=== PATIENT | male | born 1950 | race Caucasian/White ===

== ENCOUNTER 2019-01-03 16:47 | Inpatient (IN) | payer BC, MEDICARE, OTHER ==
[~2019-01-03] VITALS: Ht 172.7 cm; Wt 79.4 kg
[~2019-01-03 16:47] MED LIST: OXYCODONE HCL5 MG ORAL
[2019-01-03] MEDS ORDERED: Morphine Sulfate 4mg/ml Inj (IV USE ONLY) IVP ONE (17:15)
[2019-01-03] MEDS ORDERED: DiphenhydrAMINE 50mg/ml Inj IVP ONE (17:15)
[2019-01-03] MEDS ORDERED: Metoclopramide 10mg/2ml Inj IVP ONE (17:15)
[2019-01-03] MEDS ORDERED: Isovue-300 100ml vial INJ PRN (17:15)
[2019-01-03 17:45] LABS: ANION GAP 11 mmol/L (5-15); BLOOD UREA NITROGEN 10 mg/dL (7-18); CALCIUM 9.3 MG/DL (8.5-10.1); CARBON DIOXIDE 27 MMOL/L (21-32); CHLORIDE 105 MMOL/L (98-107); CREATININE 1.1 MG/DL (0.55-1.30); POTASSIUM 4.2 MMOL/L (3.5-5.1); SODIUM 143 MMOL/L (136-145)
--- NOTE | 2019-01-03 17:45 | NUR ---
ED Nurse Note:pt. was BIBA from home with c/o abdminal pain nausea and vomiting, pt. is A/Ox4 abulatory , VSS, blood was sent to labs, given IV fluids and pain meds
[2019-01-03 17:53] LABS: HEMATOCRIT 46.1 % (42.0-52.0); HEMOGLOBIN 14.7 G/DL (14.2-18.0); MEAN CORPUSCULAR VOLUME 96 FL (80-99); PLATELET COUNT 65 K/UL (150-450); RED CELL DISTRIBUTION WIDTH 15.6 % (11.6-14.8); WHITE BLOOD COUNT 3.4 K/UL (4.8-10.8)
--- NOTE | 2019-01-03 17:53 | Emergency Room Report ---
History of Present Illness General Chief Complaint: Abdominal Pain Source: Patient, Family Member Present Illness HPI The patient presents with 8 hours of severe abdominal pain and vomiting. He is unable to keep down clear liquids. In the past he said bowel obstruction with this problem. He denies vomiting blood or coffee-ground. At this time is vomiting bile. He felt feverish during the user acceptance tester. He is not taking any medication. He feels somewhat constipated and has not moved his bowels for a couple of days. The pain is rated 10/10 at the time since, aching and pressure radiating somewhat to the right flank. The patient has a history of hepatitis C with stomach ulcer and banding of esophageal varices in the past. He had medical treatment and the hepatitis C is cured at this time. He denies chest pain, cough, sore throat, dysuria, hematuria or joint pain. There is no headache. He has no depression. Allergies: Coded Allergies: No Known Allergies (Unverified , 11/17/14) Patient History Past Medical History: see triage record Past Surgical History: other - Banding of varices, splenorenal shunt Social History: Denies: smoking Social History Narrative With significant other Reviewed Nursing Documentation: PMH: Agreed; PSxH: Agreed Nursing Documentation-PMH Past Medical History: No History, Except For Hx Cardiac Problems: No - HEP C Review of Systems All Other Systems: negative except mentioned in HPI Physical Exam Vital Signs Date Time Temp Pulse Resp B/P (MAP) Pulse Ox O2 Delivery O2 Flow Rate FiO2 01/03/19 16:54 97.9 79 18 148/88 (108) 97 Room Air Sp02 EP Interpretation: reviewed, normal General Appearance: no apparent distress - Vomiting uncontrollably, GCS 15 Head: normocephalic Eyes: bilateral eye normal inspection, bilateral eye PERRL, bilateral eye EOMI ENT: moist mucus membranes Neck: supple Respiratory: lungs clear, normal breath sounds Cardiovascular #1: regular rate, rhythm Cardiovascular #2: 2+ radial (R) Gastrointestinal: normal inspection, soft, non-distended, no rebound, guarding - Diffuse, tenderness - Diffuse, decreased bowel sounds Genitourinary: no CVA tenderness Musculoskeletal: back normal, normal range of motion Neurologic: alert, oriented x3, grossly normal Psychiatric: mood/affect normal Skin: no rash - Sallow Medical Decision Making Diagnostic Impression: Primary Impression: Abdominal pain Qualified Codes: R10.84 - Generalized abdominal pain Additional Impressions: Nausea and vomiting Qualified Codes: R11.2 - Nausea with vomiting, unspecified Thrombocytopenia ER Course Patient presents with uncontrolled vomiting and abdominal pain with history of cirrhosis. Differential includes small bowel obstruction, gastritis, peptic ulcer disease, diverticulitis, urinary tract infection, renal stone amongst others. The patient will be evaluated with EKG, chest x-ray, CT the abdomen and pelvis with contrast, labs. The patient will receive IV hydration, Reglan, Benadryl, Pepcid and morphine. The patient is placed on a retail marketing specialist. EKG no injury. CXR without infiltrate or free air. Normal white count. Left shift. Low platelets. Elevated liver function tests. INR 1.1. Improved and able to tolerate oral contrast but still severe pain 01/01, but NAD. Discussed with Dr. Begum who accepts patient. CT pending. 19:10 Patient still with pain. Repeat morphine. No rebound. 19:30 CT no surgical pathology. Patient admitted to med floor observation with consultation from Dr. Webber and Dr. Hinkle. Laboratory Tests Test 01/03/19 17:10 01/03/19 18:00 White Blood Count 3.4 K/UL (4.8-10.8) L Red Blood Count 4.80 M/UL (4.70-6.10) Hemoglobin 14.7 G/DL (14.2-18.0) Hematocrit 46.1 % (42.0-52.0) Mean Corpuscular Volume 96 FL (80-99) Mean Corpuscular Hemoglobin 30.7 PG (27.0-31.0) Mean Corpuscular Hemoglobin Concent 31.9 G/DL (32.0-36.0) L Red Cell Distribution Width 15.6 % (11.6-14.8) H Platelet Count 65 K/UL (150-450) L Mean Platelet Volume 9.1 FL (6.5-10.1) Neutrophils (%) (Auto) % (45.0-75.0) Lymphocytes (%) (Auto) % (20.0-45.0) Monocytes (%) (Auto) % (1.0-10.0) Eosinophils (%) (Auto) % (0.0-3.0) Basophils (%) (Auto) % (0.0-2.0) Differential Total Cells Counted 100 Neutrophils % (Manual) 80 % (45-75) H Lymphocytes % (Manual) 12 % (20-45) L Monocytes % (Manual) 7 % (1-10) Eosinophils % (Manual) 0 % (0-3) Basophils % (Manual) 1 % (0-2) Band Neutrophils 0 % (0-8) Platelet Estimate Decreased L Platelet Morphology Normal Red Blood Cell Morphology Normal Prothrombin Time 12.1 SEC (9.30-11.50) H Prothrombin Time INR 1.1 (0.9-1.1) PTT 28 SEC (23-33) Sodium Level 143 MMOL/L (136-145) Potassium Level 4.2 MMOL/L (3.5-5.1) Chloride Level 105 MMOL/L (98-107) Carbon Dioxide Level 27 MMOL/L (21-32) Anion Gap 11 mmol/L (5-15) Blood Urea Nitrogen 10 mg/dL (7-18) Creatinine 1.1 MG/DL (0.55-1.30) Estimate Glomerular Filtration Rate > 60 mL/min (>60) Glucose Level 162 MG/DL (74-106) H Calcium Level 9.3 MG/DL (8.5-10.1) Total Bilirubin 2.6 MG/DL (0.2-1.0) H Direct Bilirubin 0.6 MG/DL (0.0-0.3) H Aspartate Amino Transferase (AST) 40 U/L (15-37) H Alanine Aminotransferase (ALT) 20 U/L (12-78) Alkaline Phosphatase 98 U/L (46-116) Total Creatine Kinase 120 U/L (26-308) Troponin I 0.005 ng/mL (0.000-0.056) Total Protein 7.7 G/DL (6.4-8.2) Albumin 3.6 G/DL (3.4-5.0) Globulin 4.1 g/dL Albumin/Globulin Ratio 0.9 (1.0-2.7) L Lipase 205 U/L (73-393) Urine Color Yellow Urine Appearance Clear Urine pH 5 (4.5-8.0) Urine Specific [place] 1.030 (1.005-1.035) Urine Protein Negative (NEGATIVE) Urine Glucose (UA) Negative (NEGATIVE) Urine Ketones 1+ (NEGATIVE) H Urine Blood 1+ (NEGATIVE) H Urine Nitrite Negative (NEGATIVE) Urine Bilirubin Negative (NEGATIVE) Urine Urobilinogen 1 MG/DL (0.0-1.0) H Urine Leukocyte Esterase 1+ (NEGATIVE) H Urine RBC 2-4 /HPF (0 - 0) H Urine WBC 0-2 /HPF (0 - 0) Urine Squamous Epithelial Cells None /LPF (NONE/OCC) Urine Bacteria Few /HPF (NONE) EKG Diagnostic Results Rate: normal Rhythm: NSR ST Segments: no acute changes Rhythm Strip Diag. Results EP Interpretation: yes Rhythm: NSR, no PVC's, no ectopy Chest X-Ray Diagnostic Results Chest X-Ray Diagnostic Results : Chest X-Ray Ordered: Yes # of Views/Limited/Complete: 1 View Indication: Other EP Interpretation: Yes Interpretation: no consolidation, no effusion, no pneumothorax Impression: No acute disease Electronically Signed by: Electronically signed by Brandon Simmons MD CT/MRI/US Diagnostic Results CT/MRI/US Diagnostic Results : Imaging Test Ordered: Abdomen and pelvis Impression No surgical pathology. Splenorenal shunt. Cirrhosis. Last Vital Signs Date Time Temp Pulse Resp B/P (MAP) Pulse Ox O2 Delivery O2 Flow Rate FiO2 01/04/19 00:00 100.0 76 20 107/67 (80) 92 01/03/19 23:56 Room Air Status: improved Disposition: PLACE IN OBSERVATION Condition: Serious Brandon Simmons MD Jan 03, 2019 17:53
[2019-01-03 17:55] LABS: ALANINE AMINOTRANSFERASE 20 U/L (12-78); ALBUMIN 3.6 G/DL (3.4-5.0); ALBUMIN/GLOBULIN RATIO 0.9 (1.0-2.7); ALKALINE PHOSPHATASE 98 U/L (46-116); ASPARTATE AMINO TRANSFERASE 40 U/L (15-37); BILIRUBIN,TOTAL 2.6 MG/DL (0.2-1.0); CREATINE KINASE 120 U/L (26-308)
[2019-01-03 17:58] LABS: INR 1.1 (0.9-1.1)
[2019-01-03 17:59] LABS: BILIRUBIN,DIRECT 0.6 MG/DL (0.0-0.3)
[2019-01-03 18:02] VITALS: BP 148/88
--- NOTE | 2019-01-03 18:25 | NUR ---
ED Nurse Note:pt. had finished drinking oral contrast
[2019-01-03] MEDS ORDERED: NKM (18:28)
--- NOTE | 2019-01-03 18:50 | NUR ---
ED Nurse Note:urine sent to labs, pt. adelaida to CT scan
--- NOTE | 2019-01-03 19:03 | NUR ---
ED Nurse Note:pt. is back from CT
[2019-01-03 19:06] LABS: APPEARANCE,URINE CLEAR; BILIRUBIN, URINE NEGATIVE (NEGATIVE); GLUCOSE, URINE (UA) NEGATIVE (NEGATIVE); KETONES,URINE 1+ (NEGATIVE); LEUKOCYTE ESTERASE ,URINE 1+ (NEGATIVE); NITRITE,URINE NEGATIVE (NEGATIVE); PH,URINE 5 (4.5-8.0); PROTEIN,URINE NEGATIVE (NEGATIVE); UROBILINOGEN,URINE 1 MG/DL (0.0-1.0)
--- NOTE | 2019-01-03 19:08 | NUR ---
HAND-OFF: Report given to Bill.
[2019-01-03 19:18] LABS: COLOR,URINE YELLOW
[2019-01-03] MEDS ORDERED: Morphine Sulfate 4mg/ml Inj (IV USE ONLY) IVP PRN ×2 (19:45→22:00)
[2019-01-03 20:15] VITALS: BP 135/88
--- NOTE | 2019-01-03 20:28 | NUR ---
ED Nurse Note: Report given To CAROLINA Wallace. Pt is AO x 4times, VSS, on room air no distress. Pt has 11 credits and $18 muro, and Pt wants to keep by himeself.
--- NOTE | 2019-01-03 21:00 | NUR ---
NURSE NOTES: Received patient from ED. Pt AAO x 4, on room air. Pt is ambulatory but weak gait. IV L AC intact and asymptomatic. Pt c/o low abd pain and radiated to R flank. Dana Mcelroy at bed side. All belongings reviewed and pt signed. Wallet with 18$ muro and credit cards is sent with Dana Watts. Bed locked, lowest position, alarm on, side rails up x 2, call light within reach. Vitals 101.1F, 93%, 107/71, 106. Will continue to monitor.
--- NOTE | 2019-01-03 21:40 | NUR ---
NURSE NOTES: Received admission orders from Dr. Begum.
[2019-01-03] MEDS ORDERED: D5 1/2NS w/KCl 20mEq 1,000 ML IV SCH (23:00)
[2019-01-04] VITALS: BP 107/67
[2019-01-04] MEDS ORDERED: PANTOPRAZOLE SO40 MG ORAL (00:13)
[2019-01-04] MEDS ORDERED: Heparin 1000 units/ml 1ml Vial INJ ONE (01:00)
[2019-01-04 04:00] VITALS: BP 121/76
--- NOTE | 2019-01-04 07:12 | NUR ---
NURSE NOTES: received report from OmerRN&InaRN. patient in bed. A&Ox4, verbally responsive. no respiratory distress noted on room air. pain on lower abd. mild nauseated. clear liquid on diet. IV on RAC running d5 1/2 kcl 60/hr, no fever at this time. no isolation. alarm on . call light within reach. bed in the lowest position and locked. will provide plan of care
[2019-01-04 07:24] LABS: ANION GAP 7 mmol/L (5-15); BLOOD UREA NITROGEN 11 mg/dL (7-18); CALCIUM 8.5 MG/DL (8.5-10.1); CARBON DIOXIDE 28 MMOL/L (21-32); CHLORIDE 105 MMOL/L (98-107); POTASSIUM 3.9 MMOL/L (3.5-5.1); SODIUM 140 MMOL/L (136-145)
--- NOTE | 2019-01-04 07:29 | NUR ---
HAND-OFF: Report given to CAROLINA Grullon.
[2019-01-04 07:37] LABS: HEMATOCRIT 40.3 % (42.0-52.0); HEMOGLOBIN 13.7 G/DL (14.2-18.0); MEAN CORPUSCULAR VOLUME 93 FL (80-99); PLATELET COUNT 58 K/UL (150-450); RED BLOOD COUNT 4.32 M/UL (4.70-6.10); RED CELL DISTRIBUTION WIDTH 15.7 % (11.6-14.8); WHITE BLOOD COUNT 4.6 K/UL (4.8-10.8)
[2019-01-04 08:00] VITALS: BP 136/80
--- NOTE | 2019-01-04 09:23 | Diagnostic Imaging Report ---
Indication: Abdominal pain Technique: Continuous helical transaxial imaging of the abdomen and pelvis was obtained from the lung bases to the pubic symphysis during intravenous contrast administration. Coronal 2-D reformats were also obtained. Study obtained in a Siemens sensation [address] Automatic Exposure Control was utilized. Total Dose length Product (DLP): 783.[address] Dose Index Volume (CTDIvol): 14.12 mGy Comparison: None Findings: The lung bases are clear as visualized. The left hemidiaphragm is elevated. There is suggestion of a small hiatal hernia. There is also mild thickening of the wall the distal esophagus which is filled with contrast material which is suggestive of reflux. Consider evaluation with endoscopy. Gynecomastia noted. There are dilated engorged venous structures in the upper abdomen posterior to the fundus of the stomach just above the left kidney suspicious for portosystemic varices and a splenorenal shunt. The liver is small and has an unusual appearance with areas of somewhat linear low attenuation particularly within the right lobe adjacent to the gallbladder fossa which may be periportal edema or scarring. Suspect chronic liver disease. The spleen is globular and prominent in size relative to the liver measuring about 13.3 cm. There is calcification of the portal confluence which is a unusual. There is flow within the main portal vein. There is no evidence of portal vein thrombosis. Pancreas is grossly unremarkable. The IVC is dilated which may be a sign of right heart failure. There are innumerable gallstones present. The biliary ducts do not appear dilated. There are fluid-filled distended loops of small bowel noted in a generalized fashion. No evidence of bowel obstruction. Diverticula noted in the sigmoid: Without evidence of diverticulitis. There is no significant ascites. There is thickening of the wall the urinary bladder. Prostate calcification noted. Aorta is calcified. Compression fracture deformities involving lower thoracic vertebra as well as the L1 vertebra noted. L1 is severely compressed with about 60-70% loss of height. These are probably old but please correlate clinically. There is also a mild retrolisthesis at L1-2. Scoliosis is present. IMPRESSION: Suspicion of chronic liver disease with the small nodular appearing liver with areas of what appears to be scarring and retraction within a part of the right lobe. Stigmata of portal hypertension including suspected splenorenal shunt and portosystemic varices. Prominent spleen. Cholelithiasis. Diffusely distended fluid-filled small bowel. Consider enteritis/ileus. Correlate clinically Diverticulosis of the colon. No definite diverticulitis. Unusual appearance of the portal vein which is small without calcification of the portal confluence. This may be associated with portal hypertension. Distended IVC suggestive of right heart failure or tricuspid regurgitation. Atherosclerotic vascular disease Distended esophagus with the suggestion of mild wall thickening. Consider EGD for further evaluation. Elevation of left hemidiaphragm Gynecomastia [facility] has communicated the preliminary results to the Emergency Department. Their findings are largely concordant with this report. The CT scanner at [facility] is accredited by the [employer] and the scans are performed using dose optimization techniques as appropriate to a performed exam including Automatic Exposure control.
[2019-01-04] MEDS: D5 1/2NS w/KCl 20mEq 1,000 ML IV SCH ×2 (09:32→17:39)
[2019-01-04] MEDS: Pantoprazole Inj IVP SCH (09:32)
--- NOTE | 2019-01-04 10:38 | NUR ---
RADIOLOGY DEPT., ABDOMEN X-RAY COMPLETED.-P.DYE
--- NOTE | 2019-01-04 11:14 | Diagnostic Imaging Report ---
Indication: Dyspnea Comparison: None A single view chest radiograph was obtained. Findings: Cardiomediastinal appearance is within normal limits for age. The left hemidiaphragm is elevated. The lungs are clear. Pulmonary vascularity is appropriate. The diaphragmatic contour is smooth and costophrenic angles are sharp. No pleural effusions are identified. The bones are unremarkable. Impression: No acute findings
--- NOTE | 2019-01-04 11:24 | Diagnostic Imaging Report ---
Indication: Abdominal pain Comparison: None Single view of the abdomen obtained Findings: Bowel gas pattern is nonspecific. The left hemidiaphragm is elevated. No mass, ectopic calcifications, or abnormal gas collections are identified. Scoliosis and degenerative changes of the lumbar spine noted. Impression: No acute findings
--- NOTE | 2019-01-04 11:40 | NUR ---
NURSE NOTES: seen by Dr. Rene. no acute surgery needed. keep NPO
--- NOTE | 2019-01-04 11:40 | NUR ---
NURSE NOTES: NURSE NOTES:
--- NOTE | 2019-01-04 11:44 | NUR ---
CASE MANAGEMENT: INITIAL REVIEW 68 YO M PRESENTED TO OUR ED FROM HOME CC: ABD PAIN PMHx: HEP C. SI:SBO T 97.9 HR 79 RR 18 B/P 148/88 SATS 97% ON RA WBC 3.4 GLU 162 TBILI 2.6 DBILI 0.6 AST 40 IS: REGLAN IV X1 PEPCID IV X1 MORPHINE IV X1 NS BOLUS X2 BENADRYL IV X1 PATIENT ADMITTED TO MED/SURG 01/03/2019 @ 1824 DCP: PATIENT TO BE DISCHARGED TO HOME ONCE MEDICALLY CLEARED. PLAN OF CARE: NPO INDIUM SCAN
--- NOTE | 2019-01-04 11:52 | Consultation ---
History of Present Illness General Date patient seen: Jan 04, 2019 Reason for Hospitalization: Abdominal Pain Present Illness HPI 68 year old male presented to ED with complaints of abdominal pain, nausea, emesis. states began few hours prior to admission and was acute onset 02/01. associated nausea with bilious emesis. states prior sbo in past resolved without intervention. in ED had CT which demonstrated dilated bowel. admitted for care and management. surgery called to evaluate. patient seen, chart reviewed, patient examined. Allergies: Coded Allergies: No Known Allergies (Unverified , 11/17/14) Medication History Scheduled Pantoprazole* (Pantoprazole*), Unknown Dose ORAL DAILY, (Reported) Discontinued Medications No Known Medications* (NKM - No Known Medications*), 0 ., (Reported) Discontinued Reason: Pt stopped taking med Oxycodone Hcl Ir* (Roxicodone Ir*), 5 MG ORAL Q6H PRN for For Pain Discontinued Reason: Pt stopped taking med Patient History History Provided By: Patient, Medical Record, PMD Healthcare decision maker Resuscitation status Advanced Directive on File Past Medical/Surgical History Past Medical/Surgical History: (1) Closed fracture of left distal radius (2) Thrombocytopenia (3) Nausea and vomiting (4) Abdominal pain Review of Systems Review of Symptoms General ROS: no weight loss or fever Psychological ROS: no depression or mood changes, no memory loss Ophthalmic ROS: no visual changes or eye irritation ENT ROS: no nasal congestion, hearing loss, dizziness Allergy and Immunology ROS: no allergic symptoms or urticaria Hematological and Lymphatic ROS: no swollen glands, unusual bleeding or bruising Endocrine ROS: no polyuria, polydipsia, weight changes, temperature intolerance Respiratory ROS: no cough, shortness of breath, or wheezing Cardiovascular ROS: no chest pain or dyspnea on exertion Gastrointestinal ROS: denies abdominal pain,no bright red blood in stool. Musculoskeletal ROS: no myalgias or arthralgias Neurological ROS: no TIA or stroke symptoms Dermatological ROS: no new or changing skin lesions, rashes or pruritis Physical Exam Physical Exam General appearance: alert, cooperative, no distress, appears stated age Head: Normocephalic, without obvious abnormality, atraumatic Eyes: conjunctivae/corneas clear. PERRL, EOM's intact. Fundi benign Throat: Lips, mucosa, and tongue normal. Teeth and gums normal Neck: supple, symmetrical, trachea midline, no adenopathy, thyroid: not enlarged, symmetric, no tenderness/mass/nodules, no carotid bruit and no JVD Lungs: clear to auscultation bilaterally Heart: regular rate and rhythm, S1, S2 normal, no murmur, click, rub or gallop Abdomen: soft, non-tender. Bowel sounds normal. No masses, no organomegaly Extremities: extremities normal, atraumatic, no cyanosis or edema Pulses: 2+ and symmetric Skin: Skin color, texture, turgor normal. No rashes or lesions Neurologic: Grossly normal Last 24 Hour Vital Signs Date Time Temp Pulse Resp B/P (MAP) Pulse Ox O2 Delivery O2 Flow Rate FiO2 01/04/19 09:00 Room Air 01/04/19 08:00 98.0 76 16 136/80 (98) 95 01/04/19 04:00 98.2 75 19 121/76 (91) 93 01/04/19 00:00 100.0 76 20 107/67 (80) 92 01/03/19 23:56 Room Air 01/03/19 22:28 99.2 01/03/19 20:34 97.9 75 18 135/88 100 Room Air 01/03/19 20:15 97.9 75 18 135/88 100 Room Air 01/03/19 18:09 97.9 01/03/19 18:02 97.9 78 18 148/88 97 Room Air 01/03/19 18:02 79 18 Room Air 01/03/19 16:54 97.9 79 18 148/88 (108) 97 Room Air Intake and Output 01/03/19 01/04/19 18:59 06:59 Intake Total 420 ml Output Total 200 ml Balance -200 ml 420 ml Intake IV Total 420 ml Output Emesis 200 ml # Voids 2 # Bowel Movements 1 Laboratory Tests Test 01/03/19 17:10 01/03/19 18:00 01/04/19 06:00 White Blood Count 3.4 K/UL (4.8-10.8) L 4.6 K/UL (4.8-10.8) L Red Blood Count 4.80 M/UL (4.70-6.10) 4.32 M/UL (4.70-6.10) L Hemoglobin 14.7 G/DL (14.2-18.0) 13.7 G/DL (14.2-18.0) L Hematocrit 46.1 % (42.0-52.0) 40.3 % (42.0-52.0) L Mean Corpuscular Volume 96 FL (80-99) 93 FL (80-99) Mean Corpuscular Hemoglobin 30.7 PG (27.0-31.0) 31.6 PG (27.0-31.0) H Mean Corpuscular Hemoglobin Concent 31.9 G/DL (32.0-36.0) L 34.0 G/DL (32.0-36.0) Red Cell Distribution Width 15.6 % (11.6-14.8) H 15.7 % (11.6-14.8) H Platelet Count 65 K/UL (150-450) L 58 K/UL (150-450) L Mean Platelet Volume 9.1 FL (6.5-10.1) 8.5 FL (6.5-10.1) Neutrophils (%) (Auto) % (45.0-75.0) % (45.0-75.0) Lymphocytes (%) (Auto) % (20.0-45.0) % (20.0-45.0) Monocytes (%) (Auto) % (1.0-10.0) % (1.0-10.0) Eosinophils (%) (Auto) % (0.0-3.0) % (0.0-3.0) Basophils (%) (Auto) % (0.0-2.0) % (0.0-2.0) Differential Total Cells Counted 100 100 Neutrophils % (Manual) 80 % (45-75) H 90 % (45-75) H Lymphocytes % (Manual) 12 % (20-45) L 4 % (20-45) L Monocytes % (Manual) 7 % (1-10) 6 % (1-10) Eosinophils % (Manual) 0 % (0-3) 0 % (0-3) Basophils % (Manual) 1 % (0-2) 0 % (0-2) Band Neutrophils 0 % (0-8) 0 % (0-8) Platelet Estimate Decreased L Decreased L Platelet Morphology Normal Normal Red Blood Cell Morphology Normal Prothrombin Time 12.1 SEC (9.30-11.50) H Prothromb Time International Ratio 1.1 (0.9-1.1) Activated Partial Thromboplast Time 28 SEC (23-33) Sodium Level 143 MMOL/L (136-145) 140 MMOL/L (136-145) Potassium Level 4.2 MMOL/L (3.5-5.1) 3.9 MMOL/L (3.5-5.1) Chloride Level 105 MMOL/L (98-107) 105 MMOL/L (98-107) Carbon Dioxide Level 27 MMOL/L (21-32) 28 MMOL/L (21-32) Anion Gap 11 mmol/L (5-15) 7 mmol/L (5-15) Blood Urea Nitrogen 10 mg/dL (7-18) 11 mg/dL (7-18) Creatinine 1.1 MG/DL (0.55-1.30) 1.0 MG/DL (0.55-1.30) Estimat Glomerular Filtration Rate > 60 mL/min (>60) > 60 mL/min (>60) Glucose Level 162 MG/DL (74-106) H 134 MG/DL (74-106) H Calcium Level 9.3 MG/DL (8.5-10.1) 8.5 MG/DL (8.5-10.1) Total Bilirubin 2.6 MG/DL (0.2-1.0) H Direct Bilirubin 0.6 MG/DL (0.0-0.3) H Aspartate Amino Transf (AST/SGOT) 40 U/L (15-37) H Alanine Aminotransferase (ALT/SGPT) 20 U/L (12-78) Alkaline Phosphatase 98 U/L (46-116) Total Creatine Kinase 120 U/L (26-308) Troponin I 0.005 ng/mL (0.000-0.056) Total Protein 7.7 G/DL (6.4-8.2) Albumin 3.6 G/DL (3.4-5.0) Globulin 4.1 g/dL Albumin/Globulin Ratio 0.9 (1.0-2.7) L Lipase 205 U/L (73-393) 352 U/L (73-393) Urine Color Yellow Urine Appearance Clear Urine pH 5 (4.5-8.0) Urine Specific [place] 1.030 (1.005-1.035) Urine Protein Negative (NEGATIVE) Urine Glucose (UA) Negative (NEGATIVE) Urine Ketones 1+ (NEGATIVE) H Urine Blood 1+ (NEGATIVE) H Urine Nitrite Negative (NEGATIVE) Urine Bilirubin Negative (NEGATIVE) Urine Urobilinogen 1 MG/DL (0.0-1.0) H Urine Leukocyte Esterase 1+ (NEGATIVE) H Urine RBC 2-4 /HPF (0 - 0) H Urine WBC 0-2 /HPF (0 - 0) Urine Squamous Epithelial Cells None /LPF (NONE/OCC) Urine Bacteria Few /HPF (NONE) Anisocytosis 1+ Height (Feet): 5 Height (Inches): 8.00 Weight (Pounds): 175 Medications Current Medications Medications (Trade) Dose Ordered Sig/Brian Route PRN Reason Start Time Stop Time Status Last Admin Dose Admin Acetaminophen (Tylenol) 650 mg Q6H PRN ORAL Mild Pain/Temp > 100 01/03/19 21:45 02/02/19 21:44 01/03/19 21:58 Barium Sulfate (Readi-Cat 2) 450 ml NOW PRN ORAL Radiology Procedure 01/03/19 17:15 01/05/19 17:08 Ceftriaxone Sodium 1 gm/ Dextrose 55 ml @ 110 mls/hr Q24H IVPB 01/04/19 11:00 01/11/19 10:59 Dextrose/ Electrolytes 1,000 ml @ 100 mls/hr Q10H IV 01/04/19 07:24 02/03/19 07:23 01/04/19 09:32 Heparin Sodium (Porcine) (Heparin) 2,000 unit ONCE INJ 01/06/19 09:00 01/06/19 10:00 Iopamidol (Isovue-300 100ml) 100 ml NOW PRN INJ Radiology Procedure 01/03/19 17:15 Morphine Sulfate (Morphine Sulfate) 4 mg Q4H PRN IVP PAIN 4-10 01/03/19 22:00 01/10/19 21:59 Ondansetron HCl (Zofran) 4 mg Q4HR PRN IVP Nausea & Vomiting 01/04/19 00:15 02/03/19 00:14 Pantoprazole (Protonix) 40 mg DAILY IVP 01/04/19 09:00 02/03/19 08:59 01/04/19 09:32 Assessment/Plan Problem List: (1) Nausea and vomiting Assessment & Plan: Suspicion of chronic liver disease with the small nodular appearing liver with areas of what appears to be scarring and retraction within a part of the right lobe. Stigmata of portal hypertension including suspected splenorenal shunt and portosystemic varices. Prominent spleen. Cholelithiasis. Diffusely distended fluid-filled small bowel. Consider enteritis/ileus. Correlate clinically Diverticulosis of the colon. No definite diverticulitis. Unusual appearance of the portal vein which is small without calcification of the portal confluence. This may be associated with portal hypertension. Distended IVC suggestive of right heart failure or tricuspid regurgitation. Atherosclerotic vascular disease Distended esophagus with the suggestion of mild wall thickening. Consider EGD for further evaluation. Elevation of left hemidiaphragm Gynecomastia ICD Codes: R11.2 - Nausea with vomiting, unspecified SNOMED: [id number] Qualifiers: Qualified Codes: R11.2 - Nausea with vomiting, unspecified (2) Abdominal pain Assessment & Plan: on admission CT with distended bowel loops. patient with abd pain, nausea, emesis. states since has improved currently no n/v/f/c. labs noted exam benign KUB this AM without acute findings possible ileus vs enteritis, vs resolved partial sbo no acute surgical intervention planned keep npo for today iv fluids will follow with exam thank you ICD Codes: R10.9 - Unspecified abdominal pain SNOMED: 46146603 Qualifiers: Qualified Codes: R10.84 - Generalized abdominal pain Kan Rene Jan 04, 2019 11:52
[2019-01-04] MEDS: cefTRIAXone 1 GM in D5W 55 ML IVPB SCH (11:56)
[2019-01-04 12:00] VITALS: BP 131/75
--- NOTE | 2019-01-04 13:30 | NUR ---
NURSE NOTES: given enema with tap water as ordered. no productive BM. watery X2. patient refused to get NG tube with intermitten suction. He states he feels better and any episode of vomitting since this morning. notified Dr. gardner and received order cancel NG tube. keep NPO today.
--- NOTE | 2019-01-04 13:46 | General Progress Note ---
Assessment/Plan Assessment/Plan: H & P Dictated [id number] Néstor Isabel< Subjective Date patient seen: Jan 04, 2019 ROS Limited/Unobtainable: Yes Allergies: Coded Allergies: No Known Allergies (Unverified , 11/17/14) Objective Last 24 Hour Vital Signs Date Time Temp Pulse Resp B/P (MAP) Pulse Ox O2 Delivery O2 Flow Rate FiO2 01/04/19 12:00 98.1 74 17 131/75 (93) 95 01/04/19 09:00 Room Air 01/04/19 08:00 98.0 76 16 136/80 (98) 95 01/04/19 04:00 98.2 75 19 121/76 (91) 93 01/04/19 00:00 100.0 76 20 107/67 (80) 92 01/03/19 23:56 Room Air 01/03/19 22:28 99.2 01/03/19 20:34 97.9 75 18 135/88 100 Room Air 01/03/19 20:15 97.9 75 18 135/88 100 Room Air 01/03/19 18:09 97.9 01/03/19 18:02 97.9 78 18 148/88 97 Room Air 01/03/19 18:02 79 18 Room Air 01/03/19 16:54 97.9 79 18 148/88 (108) 97 Room Air Intake and Output 01/03/19 01/04/19 19:00 07:00 Intake Total 420 ml Output Total 200 ml Balance -200 ml 420 ml Intake IV Total 420 ml Output Emesis 200 ml # Voids 2 # Bowel Movements 1 Laboratory Tests 01/03/19 17:10: White Blood Count 3.4L, Red Blood Count 4.80, Hemoglobin 14.7, Hematocrit 46.1, Mean Corpuscular Volume 96, Mean Corpuscular Hemoglobin 30.7, Mean Corpuscular Hemoglobin Concent 31.9L, Red Cell Distribution Width 15.6H, Platelet Count 65L , Mean Platelet Volume 9.1, Neutrophils (%) (Auto) , Lymphocytes (%) (Auto) , Monocytes (%) (Auto) , Eosinophils (%) (Auto) , Basophils (%) (Auto) , Differential Total Cells Counted 100, Neutrophils % (Manual) 80H, Lymphocytes % (Manual) 12L, Monocytes % (Manual) 7, Eosinophils % (Manual) 0, Basophils % ( Manual) 1, Band Neutrophils 0, Platelet Estimate DecreasedL, Platelet Morphology Normal, Red Blood Cell Morphology Normal, Prothrombin Time 12.1H, Prothromb Time International Ratio 1.1, Activated Partial Thromboplast Time 28, Sodium Level 143, Potassium Level 4.2, Chloride Level 105, Carbon Dioxide Level 27, Anion Gap 11, Blood Urea Nitrogen 10, Creatinine 1.1, Estimat Glomerular Filtration Rate > 60, Glucose Level 162H, Calcium Level 9.3, Total Bilirubin 2.6H, Direct Bilirubin 0.6H, Aspartate Amino Transf (AST/SGOT) 40H, Alanine Aminotransferase (ALT/SGPT) 20, Alkaline Phosphatase 98, Total Creatine Kinase 120, Troponin I 0.005, Total Protein 7.7, Albumin 3.6, Globulin 4.1, Albumin/ Globulin Ratio 0.9L, Lipase 205 01/03/19 18:00: Urine Color Yellow, Urine Appearance Clear, Urine pH 5, Urine Specific [place] 1.030, Urine Protein Negative, Urine Glucose (UA) Negative, Urine Ketones 1+H, Urine Blood 1+H, Urine Nitrite Negative, Urine Bilirubin Negative, Urine Urobilinogen 1H, Urine Leukocyte Esterase 1+H, Urine RBC 2-4H, Urine WBC 0-2, Urine Squamous Epithelial Cells None, Urine Bacteria Few 01/04/19 06:00: White Blood Count 4.6L, Red Blood Count 4.32L, Hemoglobin 13.7L, Hematocrit 40.3L, Mean Corpuscular Volume 93, Mean Corpuscular Hemoglobin 31.6H, Mean Corpuscular Hemoglobin Concent 34.0, Red Cell Distribution Width 15.7H, Platelet Count 58L, Mean Platelet Volume 8.5, Neutrophils (%) (Auto) , Lymphocytes (%) (Auto) , Monocytes (%) (Auto) , Eosinophils (%) (Auto) , Basophils (%) (Auto) , Differential Total Cells Counted 100, Neutrophils % ( Manual) 90H, Lymphocytes % (Manual) 4L, Monocytes % (Manual) 6, Eosinophils % ( Manual) 0, Basophils % (Manual) 0, Band Neutrophils 0, Platelet Estimate DecreasedL, Platelet Morphology Normal, Sodium Level 140, Potassium Level 3.9, Chloride Level 105, Carbon Dioxide Level 28, Anion Gap 7, Blood Urea Nitrogen 11 , Creatinine 1.0, Estimat Glomerular Filtration Rate > 60, Glucose Level 134H, Calcium Level 8.5, Lipase 352, Anisocytosis 1+ Height (Feet): 5 Height (Inches): 8.00 Weight (Pounds): 175 General Appearance: no apparent distress, alert EENT: PERRL/EOMI, pharynx normal Neck: non-tender, supple Cardiovascular: normal rate, regular rhythm, no gallop/murmur, no JVD Respiratory/Chest: chest wall non-tender, normal breath sounds, no respiratory distress Abdomen: non tender, soft, no mass Extremities: non-tender, normal inspection, no calf tenderness Edema: no edema noted Arm (L), no edema noted Arm (R), no edema noted Leg (L), no edema noted Leg (R), no edema noted Pedal (L), no edema noted Pedal (R), no edema noted Generalized Neurologic: starch dumper II-XII grossly normal, oriented x 3, responsive Lymphatic: normal anterior cervical (L), normal anterior cervical (R), normal posterior cervical (L), normal posterior cervical (R), normal submandibular (L) , normal submandibular (R), normal supraclavicular (L), normal supraclavicular ( R), normal axillary (L), normal axillary (R), normal inguinal (L), normal inguinal (R), normal other Néstor Begum MD Jan 04, 2019 13:46
[2019-01-04 16:00] VITALS: BP 136/73
--- NOTE | 2019-01-04 18:45 | Consultation ---
DATE OF CONSULTATION: 01/04/2019 INFECTIOUS DISEASE CONSULTATION CONSULTING PHYSICIAN: Asher Teague M.D. PRIMARY ATTENDING PHYSICIAN: Néstor Begum M.D. REASON FOR CONSULT: Gastroenteritis. HISTORY OF PRESENT ILLNESS: This is a 68-year-old white male admitted yesterday from home complaining of abdominal pain and vomiting. He had a low-grade fever in the hospital up to 100. The patient has history of cirrhosis and was concerned about bowel obstructions. PAST MEDICAL HISTORY: Significant for cirrhosis secondary to hepatitis C. The patient was treated for hepatitis C. He also has a splenorenal shunt and has portal hypertension. He has history of esophageal varices that were banded. The patient was in liver transplant program, but after he made a good recovery, he is out of this plan. He does snot take any medication especially for cirrhosis, however, seeing the primary doctor who is in [facility] for 2 years. PAST SURGICAL HISTORY: Abdominal surgery for stage 4 hernia. MEDICATIONS: Heparin Protonix, Zofran, morphine, Tylenol, and diphenhydramine. ALLERGIES: No known drug allergies. SOCIAL HISTORY: Denies alcohol abuse and smoking. Occasionally use marijuana. 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 REVIEW OF SYSTEMS: Today, he is feeling better. Nausea and vomiting has gone. Having no pain. Before the symptoms started yesterday, the patient had eaten frozen pancakes. Had no blood in the vomitus. Has mild diarrhea just only soft stools not too frequent. No difficulty of passing urine. PHYSICAL EXAMINATION: VITAL SIGNS: T-max 100, temperature 98, pulse 76, and blood pressure 136/80. GENERAL APPEARANCE: No acute distress. Well developed. HEAD AND NECK: [place] conjunctivae. No oral lesions. HEART: Normal rate. LUNGS: Clear. ABDOMEN: Soft. No significant distention. He has a scar of midline surgery below umbilicus. EXTREMITIES: No edema. LABORATORY AND DIAGNOSTIC DATA: WBC 4.6, hemoglobin 13.7, hematocrit 40.3, and platelets is 58,000. Sodium 140, potassium 3.9, chloride 105, bicarbonate 28, BUN 11, creatinine 1, and glucose 134. Bilirubin is 2.6. AST is 40 and ALT 20. Albumin is 3.6. The patient had a CT scan of the abdomen and pelvis that showed chronic liver disease, status post splenorenal shunt, portosystemic viruses, prominent spleen, cholelithiasis, diffuse distended small bowel enteritis, ileus, diverticulosis, not definitive diverticulitis, distended inferior vena cava suggestive of right heart failure, trace tricuspid regurgitation, distended esophagus, gynecomastia, and elevation of right hip diaphragm. IMPRESSION: 1. Enteritis or ileus. The patient is doing better. 2. Cholelithiasis. 3. Cirrhosis of liver with splenorenal shunt. 4. Portal hypertension. 5. Distended esophagus. 6. Gynecomastia. 7. Thrombocytopenia. RECOMMENDATIONS: The patient is at increased risk of infection. We will start the patient on Rocephin empirically. We will follow up the cultures that includes urine and blood and follow-up with nuclear medicine study for rule out of cholecystitis. At the end of my exam, I thank Dr. Begum, for involving me in the care of this patient. Asher Teague M.D. DR: CHRISTINE JOB#: [id number] CC: KEI
--- NOTE | 2019-01-04 19:02 | NUR ---
HAND-OFF: Report given to CAROLINA Tello&CAROLINA Buckley.
--- NOTE | 2019-01-04 19:21 | NUR ---
NURSE NOTES: Received patient sleeping in bed. No acute distress noted. Pt is on room air and NPO. IV on RAC running d5 1/2 kcl 100/hr, no fever at this time. Bed locked, lowest position, alarm on, side rails up x 2, call light within reach. Will continue to monitor.
[2019-01-04 20:00] VITALS: BP 129/71
--- NOTE | 2019-01-04 22:15 | Consultation ---
DATE OF CONSULTATION: 01/04/2019 CHIEF COMPLAINT: Abdominal pain. HISTORY OF PRESENT ILLNESS: This is a very pleasant 68-year-old male, who presented to the hospital complaining of nausea, vomiting, and abdominal pain. The patient 2 or 3 years ago, was diagnosed with a small bowel obstruction . Of note, the patient has had 2 abdominal surgeries, one hernia repair and one appendectomy. PAST MEDICAL HISTORY: Hepatitis C status post treatment. Otherwise, no other medical problems. PAST SURGICAL HISTORY: Hernia repair and appendectomy. SOCIAL HISTORY: The patient denies any recent tobacco, alcohol, or drug abuse. He has a prior history of usage of all those. FAMILY HISTORY: Noncontributory. REVIEW OF SYSTEMS: A 10-point review of systems was performed and pertinent positives in HPI. PHYSICAL EXAMINATION: GENERAL: This is a well-developed male, in no acute distress. VITAL SIGNS: Temperature 98.2, pulse 75, respirations 19, and blood pressure 120/76. HEENT: Normocephalic and atraumatic. Sclerae anicteric. NECK: Supple. No evidence of lymphadenopathy. CARDIOVASCULAR: Regular rate and rhythm. Plus S1 and S2. No obvious murmur. LUNGS: Clear to auscultation bilaterally. ABDOMEN: Distended. Tympanic. Diffusely tender to palpation. No rebound. No guarding. No peritoneal sign. EXTREMITIES: No cyanosis, no clubbing, no edema. LABORATORY DATA: White count of 3.4, hemoglobin 14, hematocrit 46, and platelet count is 65. ASSESSMENT AND PLAN: This is a 68-year-old male with signs and symptoms of small-bowel obstruction, although CT scan of the abdomen did not show much. CT did not show any obvious bowel obstruction, actually the prelim reading for this CT shows the sigmoid diverticulosis without diverticulitis, chronic appearing L1 compression fracture. There is atrophy of the hepatic segment and splenorenal shunt present and stone filled gallbladder without any pericholecystic fluid. This is a 68-year-old male with signs and symptoms suggestive of small-bowel obstruction, most likely from adhesions. Even though CT is negative, the exam is impressive. Plan to put the NG-tube to low-intermittent suction. Make the patient NPO except for medications. Intravenous fluids for hydration. Repeat laboratories for possibly surgical consultation. Consider adding antibiotics. Jeremiah Cardoso M.D. DR: GIULIANA JOB#: [id number] CC:
[2019-01-05] VITALS (7 sets, daily range): BP systolic 118–129; BP diastolic 65–80
[2019-01-05] MEDS: D5 1/2NS w/KCl 20mEq 1,000 ML IV SCH ×3 (02:46→23:56)
--- NOTE | 2019-01-05 03:44 | History and Physical Report ---
DATE OF ADMISSION: 01/04/2019 NOTE: "POOR AUDIO QUALITY" CHIEF COMPLAINT: Abdominal pain, nausea, and vomiting x2 days. HISTORY OF PRESENT ILLNESS: This is a very pleasant 68-year-old male with history of cirrhosis of the liver and portal hypertension, who came into the ER last night with 1-day complaint of nausea, vomiting, and chills. The patient was evaluated in the ER and had a CT scan showing possible ileus and cholelithiasis. He was admitted for IV fluids, NPO status, and Surgery consult and GI consult for possible acute abdomen and obstruction. REVIEW OF SYSTEMS: The patient began complaining of abdominal pain, nausea, and vomiting. No hematemesis. Had some chills. No fevers. No chest pain or palpitations. No cough or congestion. No diarrhea, constipation, melena, hematochezia, or hematemesis. Denies any dysuria, urgency, or frequency. No rashes or itching. No joint pain or swelling. No heat or cold intolerance. No weight changes. PAST MEDICAL HISTORY: History of cirrhosis of the liver, history of portal hypertension, and history of splenorenal shunt. HOME MEDICATIONS: The patient is on Protonix 40 mg daily. He takes rifaximin and lactulose everyday but he feels that he does not need them. FAMILY HISTORY: Noncontributory. SOCIAL HISTORY: The patient is engaged. No smoking, drugs, or alcohol use. PHYSICAL EXAMINATION: VITAL SIGNS: Blood pressure is 132/80, pulse of 76, respirations 16, temp is 98.0, and saturating 95% on room air. GENERAL: This is a well-developed and well-nourished male, looking older than stated age, in mild distress. HEENT: Normocephalic and atraumatic. Extraocular muscles are intact. Pupils are equal, round, and reactive to light. Anicteric sclerae. Oropharynx is dry. NECK: Supple. CHEST: Clear to auscultation without wheezes, rales, or rhonchi. CARDIOVASCULAR: Normal S1, S2. No murmurs, rubs, or gallops. ABDOMEN: Bowel sounds positive. Belly is soft. There is mild diffuse tenderness. No rebound or guarding. EXTREMITIES: No clubbing, cyanosis, or edema. NEUROLOGIC: The patient is awake, alert, and oriented x4. Cranial nerves II through XII grossly intact. No sensory or motor deficits appreciated. Reflexes are symmetric. Gait was not evaluated. LABORATORY AND DIAGNOSTIC DATA: On admission, the patient's CBC shows white count of 4.6, hemoglobin 13.7, hematocrit 40.3, and platelet count is low at 58,000 with elevated polymorphonucleocytes. A CT scan of the abdomen and pelvis done during admission shows the patient has chronic liver disease with mild nodular-appearing liver with areas of what appears to be scarring and retraction within part of the right lobe and portal hypertension including suspected splenorenal shunt and portosystemic varices. being this cholelithiasis. There is diffusely distended fluid-filled small bowel enteritis versus ileus. No definite diverticulitis. There is distended esophagram with suggestion of mild wall thickening. Consideration of EGD for further evaluation is noted. A chest x-ray done in the ER shows no acute findings. A chemistry panel done today showed sodium 140, potassium 3.9, chloride 105, carbon dioxide 28, BUN 11, creatinine 1.0, glucose is 134, calcium is 8.5. Troponin is 0.005. Lipase is elevated at 352. Urinalysis is yellow, clear, specific gravity 1.030; negative for protein, glucose, nitrites, bilirubin , 3-4 red blood cells, and 1+ blood. IMPRESSION: This is a 68-year-old male admitted with abdominal pain, distention, and vomiting with CT scan of possible ileus versus enteritis and thickened esophagus. The patient will be admitted to medical floor with the following problems. 1. Abdominal pain and vomiting, rule out gastroenteritis, rule out ileus versus early obstruction. Keep NPO. GI and Surgery consult. Keep on IV fluids. Zofran p.r.n. for nausea and vomiting. Monitor vital signs and labs daily. 2. History of cirrhosis. Continue with supportive care. The patient has portal hypertension, status post splenorenal shunt. GI to monitor the patient. 3. History of chronic thrombocytopenia, most likely related to splenomegaly from cirrhosis. 4. DVT prophylaxis, with SCDs. 5. The patient is Full Code. Néstor Begum M.D. DR: YOHANNES JOB#: [id number] CC:
--- NOTE | 2019-01-05 06:45 | General Progress Note ---
Assessment/Plan Assessment/Plan: SBO ? resolved passed gas start clears abd us to eval for liver DZ repeat labs Subjective ROS Limited/Unobtainable: Yes Allergies: Coded Allergies: No Known Allergies (Unverified , 11/17/14) Objective Last 24 Hour Vital Signs Date Time Temp Pulse Resp B/P (MAP) Pulse Ox O2 Delivery O2 Flow Rate FiO2 01/05/19 04:00 98.4 72 19 129/75 (93) 95 01/05/19 00:00 98.2 61 18 129/80 (96) 95 01/04/19 21:00 Room Air 01/04/19 20:00 98.3 69 18 129/71 (90) 95 01/04/19 16:00 98.4 73 20 136/73 (94) 93 01/04/19 12:00 98.1 74 17 131/75 (93) 95 01/04/19 09:00 Room Air 01/04/19 08:00 98.0 76 16 136/80 (98) 95 Intake and Output 01/04/19 01/05/19 19:00 07:00 Intake Total 810 ml 1200 ml Balance 810 ml 1200 ml Intake IV Total 810 ml 1200 ml # Voids 4 Height (Feet): 5 Height (Inches): 8.00 Weight (Pounds): 175 General Appearance: alert EENT: normal ENT inspection Neck: supple Cardiovascular: normal rate Respiratory/Chest: lungs clear Abdomen: normal bowel sounds, non tender, soft Extremities: non-tender Jeremiah Cardoso MD Jan 05, 2019 06:45
--- NOTE | 2019-01-05 07:18 | NUR ---
HAND-OFF: Report given to Maury Dee RN.
--- NOTE | 2019-01-05 08:00 | NUR ---
NURSE NOTES: PT AXOX4, CALM, RESTING IN BED. PT STATES HE HAS SORENESS OF ABDOMEN, BUT NO PAIN. PT STATES HE DOES NOT REQUIRE PAIN MEDICATION AT THIS TIME. DENIES NAUSEA/VOMITING. PT EDUCATED ON AVAILABLE PRN MEDICATIONS FOR PAIN AND NAUSEA. PT VERBALIZED UNDERSTANDING. PT STATES HE HAS GAS. RN AUSCULTATED ABDOMEN, ACTIVE BOWEL SOUNDS IN ALL 4 QUADRANTS. IN NO APPARENT DISTRESS AT THIS TIME. DENIES SOB OR DIZZINESS WHEN AMBULATING. EDUCATED ON FALL PRECAUTIONS. PT VERBALIZED UNDERSTANDING. CALL LIGHT WITHIN REACH. WILL CONTINUE TO MONITOR.
[2019-01-05] MEDS: Pantoprazole Inj IVP SCH (08:17)
[2019-01-05 09:41] LABS: HEMATOCRIT 40.3 % (42.0-52.0); HEMOGLOBIN 13.3 G/DL (14.2-18.0); MEAN CORPUSCULAR VOLUME 95 FL (80-99); PLATELET COUNT 55 K/UL (150-450); RED BLOOD COUNT 4.23 M/UL (4.70-6.10); RED CELL DISTRIBUTION WIDTH 16.1 % (11.6-14.8)
[2019-01-05 10:54] LABS: ALANINE AMINOTRANSFERASE 16 U/L (12-78); ALBUMIN 2.8 G/DL (3.4-5.0); ALBUMIN/GLOBULIN RATIO 0.8 (1.0-2.7); ALKALINE PHOSPHATASE 75 U/L (46-116); ANION GAP 6 mmol/L (5-15); ASPARTATE AMINO TRANSFERASE 37 U/L (15-37); BILIRUBIN,TOTAL 2.9 MG/DL (0.2-1.0); BLOOD UREA NITROGEN 9 mg/dL (7-18); CALCIUM 8.2 MG/DL (8.5-10.1); CARBON DIOXIDE 27 MMOL/L (21-32); CHLORIDE 107 MMOL/L (98-107); POTASSIUM 3.8 MMOL/L (3.5-5.1); SODIUM 140 MMOL/L (136-145)
[2019-01-05 10:56] LABS: BILIRUBIN,DIRECT 0.5 MG/DL (0.0-0.3)
[2019-01-05] MEDS: cefTRIAXone 1 GM in D5W 55 ML IVPB SCH (12:19)
--- NOTE | 2019-01-05 13:15 | Surgery Progress Note ---
Surgery Progress Note Subjective Symptoms: improved, pain absent, passing flatus Objective Last 24 Hour Vital Signs Date Time Temp Pulse Resp B/P (MAP) Pulse Ox O2 Delivery O2 Flow Rate FiO2 01/05/19 12:00 97.9 67 17 119/78 (92) 95 01/05/19 09:00 Room Air 01/05/19 07:53 98.1 61 17 126/75 (92) 94 01/05/19 04:00 98.4 72 19 129/75 (93) 95 01/05/19 00:00 98.2 61 18 129/80 (96) 95 01/04/19 21:00 Room Air 01/04/19 20:00 98.3 69 18 129/71 (90) 95 01/04/19 16:00 98.4 73 20 136/73 (94) 93 I&O Intake and Output 01/04/19 01/05/19 18:59 06:59 Intake Total 810 ml 1300 ml Balance 810 ml 1300 ml Intake IV Total 810 ml 1300 ml # Voids 4 Cardiovascular: RSR Respiratory: clear Abdomen: soft, non-tender, present bowel sounds, non-distended Extremities: no tenderness, no cyanosis Laboratory Tests Test 01/05/19 08:35 White Blood Count 3.0 K/UL (4.8-10.8) L Red Blood Count 4.23 M/UL (4.70-6.10) L Hemoglobin 13.3 G/DL (14.2-18.0) L Hematocrit 40.3 % (42.0-52.0) L Mean Corpuscular Volume 95 FL (80-99) Mean Corpuscular Hemoglobin 31.4 PG (27.0-31.0) H Mean Corpuscular Hemoglobin Concent 33.0 G/DL (32.0-36.0) Red Cell Distribution Width 16.1 % (11.6-14.8) H Platelet Count 55 K/UL (150-450) L Mean Platelet Volume 10.9 FL (6.5-10.1) H Neutrophils (%) (Auto) % (45.0-75.0) Lymphocytes (%) (Auto) % (20.0-45.0) Monocytes (%) (Auto) % (1.0-10.0) Eosinophils (%) (Auto) % (0.0-3.0) Basophils (%) (Auto) % (0.0-2.0) Differential Total Cells Counted 100 Neutrophils % (Manual) 62 % (45-75) Lymphocytes % (Manual) 21 % (20-45) Monocytes % (Manual) 11 % (1-10) H Eosinophils % (Manual) 6 % (0-3) H Basophils % (Manual) 0 % (0-2) Band Neutrophils 0 % (0-8) Platelet Estimate Decreased L Platelet Morphology Normal Anisocytosis 1+ Sodium Level 140 MMOL/L (136-145) Potassium Level 3.8 MMOL/L (3.5-5.1) Chloride Level 107 MMOL/L (98-107) Carbon Dioxide Level 27 MMOL/L (21-32) Anion Gap 6 mmol/L (5-15) Blood Urea Nitrogen 9 mg/dL (7-18) Creatinine 1.0 MG/DL (0.55-1.30) Estimat Glomerular Filtration Rate > 60 mL/min (>60) Glucose Level 127 MG/DL (74-106) H Calcium Level 8.2 MG/DL (8.5-10.1) L Total Bilirubin 2.9 MG/DL (0.2-1.0) H Direct Bilirubin 0.5 MG/DL (0.0-0.3) H Aspartate Amino Transf (AST/SGOT) 37 U/L (15-37) Alanine Aminotransferase (ALT/SGPT) 16 U/L (12-78) Alkaline Phosphatase 75 U/L (46-116) Total Protein 6.2 G/DL (6.4-8.2) L Albumin 2.8 G/DL (3.4-5.0) L Globulin 3.4 g/dL Albumin/Globulin Ratio 0.8 (1.0-2.7) L Plan Problems: (1) Nausea and vomiting Assessment & Plan: Suspicion of chronic liver disease with the small nodular appearing liver with areas of what appears to be scarring and retraction within a part of the right lobe. Stigmata of portal hypertension including suspected splenorenal shunt and portosystemic varices. Prominent spleen. Cholelithiasis. Diffusely distended fluid-filled small bowel. Consider enteritis/ileus. Correlate clinically Diverticulosis of the colon. No definite diverticulitis. Unusual appearance of the portal vein which is small without calcification of the portal confluence. This may be associated with portal hypertension. Distended IVC suggestive of right heart failure or tricuspid regurgitation. Atherosclerotic vascular disease Distended esophagus with the suggestion of mild wall thickening. Consider EGD for further evaluation. Elevation of left hemidiaphragm Gynecomastia (2) Abdominal pain Assessment & Plan: on admission CT with distended bowel loops. patient with abd pain, nausea, emesis. states since has improved currently no n/v/f/c. labs noted exam benign KUB this AM without acute findings possible ileus vs enteritis, vs resolved partial sbo no acute surgical intervention planned start clears iv fluids will follow with exam thank you Kan Rene Jan 05, 2019 13:15
--- NOTE | 2019-01-05 14:18 | NUR ---
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 ABD PAIN VS: BP 119/78, P 61, T 98.1, RR 17, SpO2 94 IS:CEFTRIAXONE 55ml IVPB D5/ELECTROLYTES x1L IV ZOFRAN 4mg IVP MORPHINE SULFATE 4mg IVP PLAN: START CLEARS ABD US TO EVAL. LIVER MED/SURG STATUS
--- NOTE | 2019-01-05 19:25 | NUR ---
HAND-OFF: Report given to Don WEST RN.
--- NOTE | 2019-01-05 19:30 | NUR ---
NURSE NOTES: Received patient sitting in chair. AAO x 4. Pt denies pain, fever, nausea, and vomiting. No acute distress noted. Pt is on room air and NPO. IV on RAC running d5 1/2 kcl 100ml/hr. Bed locked, lowest position, alarm on, side rails up x 2, call light within reach. Will continue to monitor.
--- NOTE | 2019-01-05 22:41 | General Progress Note ---
Assessment/Plan Status: progressing Assessment/Plan: IMPRESSION: This is a 68-year-old male admitted with abdominal pain, distention, and vomiting with CT scan of possible ileus versus enteritis and thickened esophagus. The patient will be admitted to medical floor with the following problems. 1. Abdominal pain and vomiting, rule out gastroenteritis, rule out ileus versus early obstruction. Keep NPO. GI and Surgery consult. Keep on IV fluids. Zofran p.r.n. for nausea and vomiting. Monitor vital signs and labs daily. 2. History of cirrhosis. Continue with supportive care. The patient has portal hypertension, status post splenorenal shunt. GI to monitor the patient. 3. History of chronic thrombocytopenia, most likely related to splenomegaly from cirrhosis. 4. DVT prophylaxis, with SCDs. 5. The patient is Full Code. Plan: - clinically improving - abd us and HIDA scan in am - clear liquids advance per GI - NPO after midnight for above testing - continue with IV fluids - continue current meds discussed with nurse Subjective Date patient seen: Jan 05, 2019 Allergies: Coded Allergies: No Known Allergies (Unverified , 11/17/14) All Systems: reviewed and negative except above Objective Last 24 Hour Vital Signs Date Time Temp Pulse Resp B/P (MAP) Pulse Ox O2 Delivery O2 Flow Rate FiO2 01/05/19 20:00 98.3 75 18 118/75 (89) 97 01/05/19 16:00 98.6 68 17 121/65 (83) 97 01/05/19 12:00 97.9 67 17 119/78 (92) 95 01/05/19 09:00 Room Air 01/05/19 07:53 98.1 61 17 126/75 (92) 94 01/05/19 04:00 98.4 72 19 129/75 (93) 95 01/05/19 00:00 98.2 61 18 129/80 (96) 95 Intake and Output 01/04/19 01/05/19 19:00 07:00 Intake Total 810 ml 1300 ml Balance 810 ml 1300 ml Intake IV Total 810 ml 1300 ml # Voids 4 Laboratory Tests 01/05/19 08:35: White Blood Count 3.0L, Red Blood Count 4.23L, Hemoglobin 13.3L, Hematocrit 40.3L, Mean Corpuscular Volume 95, Mean Corpuscular Hemoglobin 31.4H, Mean Corpuscular Hemoglobin Concent 33.0, Red Cell Distribution Width 16.1H, Platelet Count 55L, Mean Platelet Volume 10.9H, Neutrophils (%) (Auto) , Lymphocytes (%) (Auto) , Monocytes (%) (Auto) , Eosinophils (%) (Auto) , Basophils (%) (Auto) , Differential Total Cells Counted 100, Neutrophils % ( Manual) 62, Lymphocytes % (Manual) 21, Monocytes % (Manual) 11H, Eosinophils % ( Manual) 6H, Basophils % (Manual) 0, Band Neutrophils 0, Platelet Estimate DecreasedL, Platelet Morphology Normal, Anisocytosis 1+, Sodium Level 140, Potassium Level 3.8, Chloride Level 107, Carbon Dioxide Level 27, Anion Gap 6, Blood Urea Nitrogen 9, Creatinine 1.0, Estimat Glomerular Filtration Rate > 60, Glucose Level 127H, Calcium Level 8.2L, Total Bilirubin 2.9H, Direct Bilirubin 0.5H, Aspartate Amino Transf (AST/SGOT) 37, Alanine Aminotransferase (ALT/SGPT) 16, Alkaline Phosphatase 75, Total Protein 6.2L, Albumin 2.8L, Globulin 3.4, Albumin/Globulin Ratio 0.8L Height (Feet): 5 Height (Inches): 8.00 Weight (Pounds): 175 General Appearance: no apparent distress, alert EENT: PERRL/EOMI, pharynx normal Neck: non-tender, supple Cardiovascular: normal rate, regular rhythm, no gallop/murmur, no JVD Respiratory/Chest: chest wall non-tender, normal breath sounds, no respiratory distress Abdomen: tender Extremities: non-tender, normal inspection, no calf tenderness Edema: no edema noted Arm (L), no edema noted Arm (R), no edema noted Leg (L), no edema noted Leg (R), no edema noted Pedal (L), no edema noted Pedal (R), no edema noted 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
[2019-01-06] VITALS: BP 100/62
[2019-01-06 04:00] VITALS: BP 114/58
--- NOTE | 2019-01-06 07:32 | NUR ---
HAND-OFF: Report given to Braden Lizarraga RN.
--- NOTE | 2019-01-06 07:44 | NUR ---
pt resting in bed. A/O x 4, calm, no N/V. denies pain at this time. IVF infusing. no bleeding. call light within reach. bed in low position. fall precaution maintained. will continue to monitor.
[2019-01-06 07:58] LABS: HEMATOCRIT 37.2 % (42.0-52.0); HEMOGLOBIN 12.3 G/DL (14.2-18.0); MEAN CORPUSCULAR VOLUME 94 FL (80-99); PLATELET COUNT 45 K/UL (150-450); RED BLOOD COUNT 3.98 M/UL (4.70-6.10); RED CELL DISTRIBUTION WIDTH 15.1 % (11.6-14.8); WHITE BLOOD COUNT 2.5 K/UL (4.8-10.8)
[2019-01-06] MEDS: D5 1/2NS w/KCl 20mEq 1,000 ML IV SCH (08:11)
[2019-01-06] MEDS: Pantoprazole Inj IVP SCH (08:11)
[2019-01-06 08:15] LABS: ANION GAP 6 mmol/L (5-15); BLOOD UREA NITROGEN 8 mg/dL (7-18); CALCIUM 8.2 MG/DL (8.5-10.1); CARBON DIOXIDE 26 MMOL/L (21-32); CHLORIDE 108 MMOL/L (98-107); CREATININE 0.9 MG/DL (0.55-1.30); POTASSIUM 3.9 MMOL/L (3.5-5.1); SODIUM 140 MMOL/L (136-145)
[2019-01-06] MEDS ORDERED: Heparin 1000 units/ml 1ml Vial INJ SCH (09:00)
--- NOTE | 2019-01-06 09:28 | General Progress Note ---
Assessment/Plan Status: progressing Assessment/Plan: Assessment - resolved abdominal complaints - h/o HCV - eradicated - cirrhosis with portal HTN Recommendations - advance diet - follow labs - f/u at [facility] liver clinic Subjective Allergies: Coded Allergies: No Known Allergies (Unverified , 11/17/14) Subjective no N/V (+) BM tolerating clears says he is being followed regularly by the liver clinic at [facility] h/o HCV - eradicated Objective Last 24 Hour Vital Signs Date Time Temp Pulse Resp B/P (MAP) Pulse Ox O2 Delivery O2 Flow Rate FiO2 01/06/19 04:00 97.8 78 18 114/58 (76) 97 01/06/19 00:00 98.1 70 19 100/62 (75) 95 01/05/19 21:00 Room Air 01/05/19 20:00 98.3 75 18 118/75 (89) 97 01/05/19 16:00 98.6 68 17 121/65 (83) 97 01/05/19 12:00 97.9 67 17 119/78 (92) 95 Intake and Output 01/05/19 01/06/19 19:00 07:00 Intake Total 1855 ml 1100 ml Balance 1855 ml 1100 ml Intake IV Total 955 ml 1100 ml Other 900 ml # Voids 4 Laboratory Tests 01/06/19 07:32: White Blood Count 2.5L, Red Blood Count 3.98L, Hemoglobin 12.3L, Hematocrit 37.2L, Mean Corpuscular Volume 94, Mean Corpuscular Hemoglobin 30.9, Mean Corpuscular Hemoglobin Concent 32.9, Red Cell Distribution Width 15.1H, Platelet Count 45L, Mean Platelet Volume 7.7, Neutrophils (%) (Auto) , Lymphocytes (%) (Auto) , Monocytes (%) (Auto) , Eosinophils (%) (Auto) , Basophils (%) (Auto) , Neutrophils % (Manual) [Pending], Lymphocytes % (Manual) [Pending], Platelet Estimate [Pending], Platelet Morphology [Pending], Sodium Level 140, Potassium Level 3.9, Chloride Level 108H, Carbon Dioxide Level 26, Anion Gap 6, Blood Urea Nitrogen 8, Creatinine 0.9, Estimat Glomerular Filtration Rate > 60, Glucose Level 92, Calcium Level 8.2L Height (Feet): 5 Height (Inches): 8.00 Weight (Pounds): 175 Objective WDWN NCAT supple CTA RRR abd soft NT ND no edema Raghu Mcmullen MD Jan 06, 2019 09:28
[2019-01-06] MEDS: cefTRIAXone 1 GM in D5W 55 ML IVPB SCH (10:26)
--- NOTE | 2019-01-06 11:16 | Infectious Diseases Prog Note ---
Assessment/Plan Assessment/Plan antibiotics : ceftriaxone A 1. enteritis improving 2. hepatitis C 3. cirrhosis 4. portal hypertension P 1. continue ceftriaxone 2. will follow up clinically Subjective Constitutional: Denies: fever, chills Respiratory: Denies: shortness of breath, dry cough Gastrointestinal/Abdominal: Reports: diarrhea; Denies: nausea, vomiting Musculoskeletal: Denies: pain Allergies: Coded Allergies: No Known Allergies (Unverified , 11/17/14) Objective Vital Signs Last 24 Hour Vital Signs Date Time Temp Pulse Resp B/P (MAP) Pulse Ox O2 Delivery O2 Flow Rate FiO2 01/06/19 09:00 Room Air 01/06/19 04:00 97.8 78 18 114/58 (76) 97 01/06/19 00:00 98.1 70 19 100/62 (75) 95 01/05/19 21:00 Room Air 01/05/19 20:00 98.3 75 18 118/75 (89) 97 01/05/19 16:00 98.6 68 17 121/65 (83) 97 01/05/19 12:00 97.9 67 17 119/78 (92) 95 Height (Feet): 5 Height (Inches): 8.00 Weight (Pounds): 175 Respiratory/Chest: lungs clear Cardiovascular: normal rate, regular rhythm, no gallop/murmur Abdomen: soft, non tender Extremities: no edema Microbiology Date/Time Source Procedure Growth Status 01/04/19 06:05 Blood Blood Culture - Preliminary NO GROWTH AFTER 24 HOURS Resulted 01/04/19 06:00 Blood Blood Culture - Preliminary NO GROWTH AFTER 24 HOURS Resulted 01/03/19 23:00 Urine,Clean Catch Urine Culture - Preliminary NO GROWTH AFTER 24 HOURS Resulted Laboratory Tests Test 01/06/19 07:32 White Blood Count 2.5 K/UL (4.8-10.8) L Red Blood Count 3.98 M/UL (4.70-6.10) L Hemoglobin 12.3 G/DL (14.2-18.0) L Hematocrit 37.2 % (42.0-52.0) L Mean Corpuscular Volume 94 FL (80-99) Mean Corpuscular Hemoglobin 30.9 PG (27.0-31.0) Mean Corpuscular Hemoglobin Concent 32.9 G/DL (32.0-36.0) Red Cell Distribution Width 15.1 % (11.6-14.8) H Platelet Count 45 K/UL (150-450) L Mean Platelet Volume 7.7 FL (6.5-10.1) Neutrophils (%) (Auto) % (45.0-75.0) Lymphocytes (%) (Auto) % (20.0-45.0) Monocytes (%) (Auto) % (1.0-10.0) Eosinophils (%) (Auto) % (0.0-3.0) Basophils (%) (Auto) % (0.0-2.0) Neutrophils % (Manual) Pending Lymphocytes % (Manual) Pending Platelet Estimate Pending Platelet Morphology Pending Sodium Level 140 MMOL/L (136-145) Potassium Level 3.9 MMOL/L (3.5-5.1) Chloride Level 108 MMOL/L (98-107) H Carbon Dioxide Level 26 MMOL/L (21-32) Anion Gap 6 mmol/L (5-15) Blood Urea Nitrogen 8 mg/dL (7-18) Creatinine 0.9 MG/DL (0.55-1.30) Estimat Glomerular Filtration Rate > 60 mL/min (>60) Glucose Level 92 MG/DL (74-106) Calcium Level 8.2 MG/DL (8.5-10.1) L Current Medications Medications (Trade) Dose Ordered Sig/Brian Route PRN Reason Start Time Stop Time Status Last Admin Dose Admin Acetaminophen (Tylenol) 650 mg Q6H PRN ORAL Mild Pain/Temp > 100 01/03/19 21:45 02/02/19 21:44 01/04/19 17:42 Ceftriaxone Sodium 1 gm/ Dextrose 55 ml @ 110 mls/hr Q24H IVPB 01/04/19 11:00 01/11/19 10:59 01/06/19 10:26 Dextrose/ Electrolytes 1,000 ml @ 100 mls/hr Q10H IV 01/04/19 07:24 02/03/19 07:23 01/06/19 08:11 Morphine Sulfate (Morphine Sulfate) 4 mg Q4H PRN IVP PAIN 4-10 01/03/19 22:00 01/10/19 21:59 Ondansetron HCl (Zofran) 4 mg Q4HR PRN IVP Nausea & Vomiting 01/04/19 00:15 02/03/19 00:14 01/04/19 17:45 Pantoprazole (Protonix) 40 mg DAILY IVP 01/04/19 09:00 02/03/19 08:59 01/06/19 08:11 Calin Yoo MD Jan 06, 2019 11:16
[2019-01-06 12:00] VITALS: BP 119/68
--- NOTE | 2019-01-06 12:01 | Surgery Progress Note ---
Surgery Progress Note Subjective Symptoms: improved, pain absent, tolerating diet, passing flatus Additional Comments no acute events comfortable stable US done, pending results Objective Last 24 Hour Vital Signs Date Time Temp Pulse Resp B/P (MAP) Pulse Ox O2 Delivery O2 Flow Rate FiO2 01/06/19 09:00 Room Air 01/06/19 04:00 97.8 78 18 114/58 (76) 97 01/06/19 00:00 98.1 70 19 100/62 (75) 95 01/05/19 21:00 Room Air 01/05/19 20:00 98.3 75 18 118/75 (89) 97 01/05/19 16:00 98.6 68 17 121/65 (83) 97 I&O Intake and Output 01/05/19 01/06/19 19:00 07:00 Intake Total 1855 ml 1100 ml Balance 1855 ml 1100 ml Intake IV Total 955 ml 1100 ml Other 900 ml # Voids 4 Cardiovascular: RSR Respiratory: clear Abdomen: soft, flat, non-tender, present bowel sounds, non-distended Extremities: no edema, no tenderness, no cyanosis Laboratory Tests Test 01/06/19 07:32 White Blood Count 2.5 K/UL (4.8-10.8) L Red Blood Count 3.98 M/UL (4.70-6.10) L Hemoglobin 12.3 G/DL (14.2-18.0) L Hematocrit 37.2 % (42.0-52.0) L Mean Corpuscular Volume 94 FL (80-99) Mean Corpuscular Hemoglobin 30.9 PG (27.0-31.0) Mean Corpuscular Hemoglobin Concent 32.9 G/DL (32.0-36.0) Red Cell Distribution Width 15.1 % (11.6-14.8) H Platelet Count 45 K/UL (150-450) L Mean Platelet Volume 7.7 FL (6.5-10.1) Neutrophils (%) (Auto) % (45.0-75.0) Lymphocytes (%) (Auto) % (20.0-45.0) Monocytes (%) (Auto) % (1.0-10.0) Eosinophils (%) (Auto) % (0.0-3.0) Basophils (%) (Auto) % (0.0-2.0) Neutrophils % (Manual) Pending Lymphocytes % (Manual) Pending Platelet Estimate Pending Platelet Morphology Pending Sodium Level 140 MMOL/L (136-145) Potassium Level 3.9 MMOL/L (3.5-5.1) Chloride Level 108 MMOL/L (98-107) H Carbon Dioxide Level 26 MMOL/L (21-32) Anion Gap 6 mmol/L (5-15) Blood Urea Nitrogen 8 mg/dL (7-18) Creatinine 0.9 MG/DL (0.55-1.30) Estimat Glomerular Filtration Rate > 60 mL/min (>60) Glucose Level 92 MG/DL (74-106) Calcium Level 8.2 MG/DL (8.5-10.1) L Plan Problems: (1) Nausea and vomiting Assessment & Plan: Suspicion of chronic liver disease with the small nodular appearing liver with areas of what appears to be scarring and retraction within a part of the right lobe. Stigmata of portal hypertension including suspected splenorenal shunt and portosystemic varices. Prominent spleen. Cholelithiasis. Diffusely distended fluid-filled small bowel. Consider enteritis/ileus. Correlate clinically Diverticulosis of the colon. No definite diverticulitis. Unusual appearance of the portal vein which is small without calcification of the portal confluence. This may be associated with portal hypertension. Distended IVC suggestive of right heart failure or tricuspid regurgitation. Atherosclerotic vascular disease Distended esophagus with the suggestion of mild wall thickening. Consider EGD for further evaluation. Elevation of left hemidiaphragm Gynecomastia (2) Abdominal pain Assessment & Plan: on admission CT with distended bowel loops. patient with abd pain, nausea, emesis. states since has improved currently no n/v/f/c. labs noted exam benign KUB without acute findings possible ileus vs enteritis, vs resolved partial sbo no acute surgical intervention planned diet as tolerated f/u ultrasound d/c planning will follow with exam thank you Kan Rene Jan 06, 2019 12:01
--- NOTE | 2019-01-06 12:30 | Diagnostic Imaging Report ---
Indication: Abdominal pain, elevated liver function tests Technique: Linda-scale and duplex images of the upper abdomen were obtained. Doppler interrogation of the pancreatic and hepatic vessels Comparison: Reference made to abdomen pelvis CT 01/03/2019 Findings: Gallbladder demonstrates gallstones. Sonographic Doe's sign is negative. Common bile duct measures 3 mm in diameter. No intrahepatic biliary ductal dilatation. Liver demonstrates coarsened echogenicity and surface nodularity Portal vein and hepatic veins are patent, to and fro flow and possible flow reversal are noted in the main portal vein. Hepatopedal flow is noted in the intrahepatic veins Pancreas is incompletely visualized due to overlying bowel gas, visualized portions are unremarkable. The spleen is enlarged. Splenic hilar varices are noted. Left kidney measures 11.3 cm in length. Right kidney measures 10.6 cm length. Both kidneys demonstrate normal echogenicity. There is mild fullness to the right renal collecting system No focal abnormality . Abdominal aorta is partially obscured by bowel gas, visualized portions are non-aneurysmal . Impression: Cholelithiasis. Negative for dilated bile duct Irregular nodular liver surface and hepatic parenchymal coarsened echotexture, consistent with cirrhosis, also described on recent CT Evidence of portal hypertension, with splenomegaly and splenic hilar varices. This is also reported on recent CT. Doppler imaging also demonstrates abnormal flow within the portal vein Nonspecific mild right renal collecting system fullness is similar appearance on recent CT scan without evidence of ureteral obstructing lesion Note inability to visualize portions of the pancreas and abdominal aorta
--- NOTE | 2019-01-06 13:47 | NUR ---
CHARGE NURSE NOTE: Abd. ultrasound done. Dx:Cholelithiasis. notified. No new orders given.
--- NOTE | 2019-01-06 14:18 | Diagnostic Imaging Report ---
Indications: Abdominal pain Technique: IV administration 5.5 mCi 99 M technetium Choletec. Serial images obtained over the abdomen for 2 hrs. IV administration of 4 mg of morphine and 75 minutes. Note that due to limited acoustical concerns, serial images were not obtained between 30 and 75 minutes. Comparison: None Findings: Prompt tracer uptake within the liver. Extrahepatic bile ducts are seen at 10 minutes. Excretion into the duodenum demonstrated at 12 minutes. At the time of morphine administration, only a small amount of residual tracer seen in the liver and bile ducts. There is suggestion of some appearance of tracer in the gallbladder fossa on the dynamic images taken after morphine administration, and suggestion of a structure containing tracer in the gallbladder fossa on the static images, although this is not certain. Impression: Equivocal appearance of tracer in the gallbladder on delayed images after morphine administration. Exam is likely but not definitively negative for acute cholecystitis Patent common bile duct
--- NOTE | 2019-01-06 14:28 | NUR ---
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 ABD PAIN VS: BP 114/58, P 62, T 98.0, RR 18, SpO2 95 WBC 2.5, RBC 3.98, H&H 12.3/37.2, Ca 8.2 ABD US: Cholelithiasis. Irregular nodular liver surface and hepatic parenchymal coarsened echotexture IS:CEFTRIAXONE 55ml IVPB D5/ELECTROLYTES x1L IV ZOFRAN 4mg IVP MORPHINE SULFATE 4mg IVP PLAN: CONT. CEFTRIAXONE ADVANCED DIET MED/SURG STATUS
[2019-01-06 16:00] VITALS: BP 121/67
--- NOTE | 2019-01-06 17:27 | NUR ---
DC pt home per order. pt awake, A/O x 4, calm , denies pain, tolerating diet well. no N/V. family at bedside. belongings with pt. DC instruction given to pt, verbalize understand. pts stable condition.
--- NOTE | 2019-01-07 08:45 | Discharge Summary ---
Discharge Summary Discharge Summary _ DATE OF ADMISSION: 01/03/2019 DATE OF DISCHARGE: 01/06/2019 DISCHARGED BY: Dr Begum REASON FOR ADMISSION: 68 years old male with past medical history of liver cirrhosis, portal hypertension, splenorenal shunt, presented to emergency department , complaining of nausea, vomiting and chills. Upon evaluation in emergency room vital signs were stable. CT scan of the abdomen and pelvis demonstrated chronic liver disease. Cholelithiasis. Diffusely distended fluid-filled small bowels. Consider enteritis/ileus. Diverticulosis of colon , no definite diverticulitis. Distended esophagus with suggestion of mild wall thickening. Distended IVC suggestive of right heart failure or tricuspid regurgitation. Unusual appearance of the portal vein , possibly associated with the portal hypertension. Chest x-ray demonstrated no acute cardiopulmonary pathology. Laboratory work-up revealed WBC 3.4 , stable hemoglobin and hematocrit. Platelet count 65 stable electrolytes and renal parameters. Total bilirubin 2.6, direct bilirubin 0.6. AST 40, ALT 20. Lipase 205. Troponin negative. Albumin 3.6. Urinalysis revealed +1 ketone, +1 blood, but no evidence of pyuria or bacteria. Patient subsequently admitted to medical surgical floor for further management. CONSULTANTS: ID specialist Dr. Yoo GI specialist Dr. Mcmullen [facility] Dr. Rene [facility] COURSE: Patient admitted to medical surgical floor. Patient was kept n.p.o. GI specialist and general surgeon followed. Patient started on the IV fluids. Symptomatic treatment with antiemetic provided as needed. Pain management was addressed as needed. DVT prophylaxis with SCD provided. Abdominal x-ray demonstrated no acute findings. Abdominal ultrasound revealed cholelithiasis, but was negative for dilated bile ducts. Irregular nodular liver surface and hepatic parenchymal coarsened echotexture, consistent with cirrhosis, Evidence of portal hypertension with splenomegaly and splenic hilar varices. HIDA scan revealed patent common bile duct. Exam was likely negative for acute cholecystitis. LFT and bilirubin were closely monitored. Total bilirubin was trending up 2.9. AST down to normal . Nausea and vomiting resolved , no fever, no leukocytosis .physical exam benign. Per surgeon, patient likely had ileus versus enteritis versus resolved partial small bowel obstruction. No acute surgical intervention was planned at this time. Patient slowly started on diet, and diet was advanced as tolerated. Patient was able to tolerate diet. Prophylaxis with PPI provided. Infectious disease specialist followed. Blood cultures were negative. Urine culture negative. Patient initially was on empiric antibiotic as per ID specialist recommendation. Patient with history of hepatitis C , eradicated. Abdominal complaints resolved. Patient clinically stabilized and was ready for discharge home. FINAL DIAGNOSES: Abdominal pain with nausea and vomiting-resolved, likely due to enteritis Probable ileus versus enteritis Possibly resolved partial small bowel obstruction Cirrhosis with portal hypertension Chronic thrombocytopenia (most likely related to splenomegaly) History of hepatitis C, eradicated DISCHARGE MEDICATIONS: See Medication Reconciliation list. DISCHARGE INSTRUCTIONS: Patient was discharged home . Follow up with [facility] liver clinic. I have been assigned to dictate discharge summary for this account. I was not involved in the patient's management. Micaela Bettencourt NP Jan 07, 2019 08:45
== END 2019-01-06 17:52 | disposition home or self-care (01) | DRG 389 ==
LOC: EMR 17:30 → 4E 18:24 → EDBEDREQ 18:51 → 4E 21:13
DX: K56.690 Other partial intestinal obstruction (principal); K76.6 Portal hypertension; K56.7 Ileus, unspecified; K52.9 Noninfective gastroenteritis and colitis, unspecified; K74.69 Other cirrhosis of liver; D69.6 Thrombocytopenia, unspecified; Z86.19 Personal history of other infectious and parasitic diseases; K80.20 Calculus of gallbladder without cholecystitis without obstruction; K22.8 Other specified diseases of esophagus; N62 Hypertrophy of breast
CPT/HCPCS: 36415; 71045; 74018; 74177; 76700; 78266; 80048; 80053; 81003; 82248; 82550; 83690; 84484; 85007; 85025; 85610; 85730; 87040; 87086; 93005; 96361; 96374; 96375; 99285; J2405; J2765

== ENCOUNTER 2019-04-23 14:41 | Emergency (ER) | payer BC, MEDICARE ==
[~2019-04-23] VITALS: Ht 172.7 cm; Wt 72.6 kg
[~2019-04-23 14:41] MED LIST changes: +NKM; +PANTOPRAZOLE SO40 MG ORAL
[2019-04-23 14:50] VITALS: BP 147/100
[2019-04-23] MEDS ORDERED: Morphine Sulfate 4mg/ml Inj (IV USE ONLY) IVP ONE ×3 (15:00→21:45)
[2019-04-23] MEDS ORDERED: Omnipaque-300 100ml vial INJ PRN (15:00)
--- NOTE | 2019-04-23 15:01 | Emergency Room Report ---
History of Present Illness General Chief Complaint: Abdominal Pain Source: Patient Present Illness HPI Disclaimer: Please note that this report is being documented using [employer] technology. This can lead to erroneous entry secondary to incorrect interpretation by the dictating instrument. HPI: 68-year-old male with a history of hepatitis C that is since been eradicated, cirrhosis, portal hypertension and splenomegaly presents for evaluation of abdominal pain and vomiting. Symptoms began this morning. Notes a constant diffuse abdominal pain that is concentrated more in the upper quadrants. Also notes some bilateral flank pain but denies any dysuria or hematuria. Has a history of nephrolithiasis but is never required surgical extraction. Denies diarrhea. Reports constipation states he is no longer passing gas. Patient states he had a similar presentation earlier this year where he was diagnosed with either an ileus, an enteritis, or a bowel obstruction that resolved spontaneously. He was noted to have some diverticulosis without diverticulitis at that time and chronic thrombocytopenia. Last emesis was approximately 45 minutes prior to arrival. He states it was nonbloody. PMH: Hepatitis C now eradicated, cirrhosis, portal hypertension, splenomegaly PSH: See chart Allergies: Denies Social Hx: Denies current drug, alcohol or tobacco use Allergies: Coded Allergies: No Known Allergies (Unverified , 11/17/14) Nursing Documentation-PMH Past Medical History: No History, Except For Hx Cardiac Problems: No Hx Cancer: No Hx Gastrointestinal Problems: Yes - bowel obstruction Hx Neurological Problems: No Review of Systems All Other Systems: negative except mentioned in HPI Physical Exam Vital Signs Date Time Temp Pulse Resp B/P (MAP) Pulse Ox O2 Delivery O2 Flow Rate FiO2 04/23/19 14:44 98.2 103 16 147/100 (116) 100 Room Air General: Awake and alert, no acute distress HEENT: NC/AT. EOMI. dry mucous membranes Cardiovascular: Cardiac. S1 and S2 normal. No murmur appreciated Resp: Normal work of breathing. No cough, wheezing or crackles appreciated Abdomen: Abdomen is soft, nondistended. Tenderness in the epigastrium, periumbilical region. No rebound tenderness. There is tenderness in the right lower quadrant however. Negative Rovsing sign. Negative Doe's tenderness. There is some left-sided CVA tenderness Skin: Intact. No abrasions, laceration or rash over the exposed skin MSK: Normal tone and bulk. Moving all extremities. No obvious deformity. Neuro: Awake and alert. Mentating appropriately. Back/Spine: Left-sided CVA tenderness on percussion Medical Decision Making Diagnostic Impression: Primary Impression: Pancreatitis Additional Impression: Enteritis ER Course 68-year-old male with a history of cirrhosis and portal hypertension splenomegaly presents for evaluation of abdominal pain vomiting. Differential includes but is not limited to enteritis, SBO, pancreatitis, ileus, gastroenteritis, appendicitis, GERD, bowel ischemia. Will obtain labs and send the patient for CT scan of the abdomen and pelvis. Give IV fluids, antiemetics and pain medication. Laboratory Tests Test 04/23/19 15:05 04/23/19 15:39 04/23/19 17:50 White Blood Count 4.1 K/UL (4.8-10.8) L Red Blood Count 4.91 M/UL (4.70-6.10) Hemoglobin 15.9 G/DL (14.2-18.0) Hematocrit 44.5 % (42.0-52.0) Mean Corpuscular Volume 91 FL (80-99) Mean Corpuscular Hemoglobin 32.4 PG (27.0-31.0) H Mean Corpuscular Hemoglobin Concent 35.7 G/DL (32.0-36.0) Red Cell Distribution Width 14.2 % (11.6-14.8) Platelet Count 54 K/UL (150-450) L Mean Platelet Volume 9.5 FL (6.5-10.1) Neutrophils (%) (Auto) % (45.0-75.0) Lymphocytes (%) (Auto) % (20.0-45.0) Monocytes (%) (Auto) % (1.0-10.0) Eosinophils (%) (Auto) % (0.0-3.0) Basophils (%) (Auto) % (0.0-2.0) Differential Total Cells Counted 100 Neutrophils % (Manual) 80 % (45-75) H Lymphocytes % (Manual) 13 % (20-45) L Monocytes % (Manual) 6 % (1-10) Eosinophils % (Manual) 1 % (0-3) Basophils % (Manual) 0 % (0-2) Band Neutrophils 0 % (0-8) Platelet Estimate Decreased L Platelet Morphology Normal Red Blood Cell Morphology Normal Prothrombin Time 12.0 SEC (9.30-11.50) H Prothrombin Time INR 1.1 (0.9-1.1) PTT 29 SEC (23-33) Sodium Level 144 MMOL/L (136-145) Potassium Level 4.2 MMOL/L (3.5-5.1) Chloride Level 107 MMOL/L (98-107) Carbon Dioxide Level 25 MMOL/L (21-32) Anion Gap 12 mmol/L (5-15) Blood Urea Nitrogen 11 mg/dL (7-18) Creatinine 1.0 MG/DL (0.55-1.30) Estimate Glomerular Filtration Rate > 60 mL/min (>60) Glucose Level 136 MG/DL (74-106) H Calcium Level 9.5 MG/DL (8.5-10.1) Total Bilirubin 3.1 MG/DL (0.2-1.0) H Direct Bilirubin 0.8 MG/DL (0.0-0.3) H Aspartate Amino Transferase (AST) 108 U/L (15-37) H Alanine Aminotransferase (ALT) 49 U/L (12-78) Alkaline Phosphatase 108 U/L (46-116) Total Protein 7.7 G/DL (6.4-8.2) Albumin 3.3 G/DL (3.4-5.0) L Globulin 4.4 g/dL Albumin/Globulin Ratio 0.8 (1.0-2.7) L Lipase 1043 U/L (73-393) H Lactic Acid Level 3.20 mmol/L (0.4-2.0) H 2.90 mmol/L (0.66-2.22) H Urine Color Dali Urine Appearance Clear Urine pH 5 (4.5-8.0) Urine Specific Brutus 1.020 (1.005-1.035) Urine Protein 2+ (NEGATIVE) H Urine Glucose (UA) Negative (NEGATIVE) Urine Ketones 1+ (NEGATIVE) H Urine Blood 3+ (NEGATIVE) H Urine Nitrite Negative (NEGATIVE) Urine Bilirubin Negative (NEGATIVE) Urine Ictotest Negative (NEGATIVE) Urine Urobilinogen 1 MG/DL (0.0-1.0) H Urine Leukocyte Esterase 1+ (NEGATIVE) H Urine RBC 5-10 /HPF (0 - 0) H Urine WBC 10-15 /HPF (0 - 0) H Urine Squamous Epithelial Cells Few /LPF (NONE/OCC) Urine Bacteria Few /HPF (NONE) Urine Mucus Many /LPF (NONE/OCC) H Reevaluation Time: 19:47 Last Vital Signs Date Time Temp Pulse Resp B/P (MAP) Pulse Ox O2 Delivery O2 Flow Rate FiO2 04/23/19 14:50 98.2 16 147/100 100 Room Air 04/23/19 14:44 103 Reevaluation Impression Labs show an elevated lipase consistent with pancreatitis. CT scan is consistent with enteritis. No evidence of necrotizing pancreatitis or intra- abdominal abscess/obstruction. Continues to receive IV fluids but is needed multiple pain medications. He will require further admission for IV fluids and pain medication. The patient has been accepted to [facility] and we will arrange transfer. He remains in stable condition and appropriate for transfer. Disposition: [facility] Condition: Stable Scripts Unable to Obtain Active Prescriptions or Reported Meds Holden Kwon MD Apr 23, 2019 15:01
[2019-04-23 15:41] LABS: HEMATOCRIT 44.5 % (42.0-52.0); HEMOGLOBIN 15.9 G/DL (14.2-18.0); MEAN CORPUSCULAR VOLUME 91 FL (80-99); PLATELET COUNT 54 K/UL (150-450); RED BLOOD COUNT 4.91 M/UL (4.70-6.10); RED CELL DISTRIBUTION WIDTH 14.2 % (11.6-14.8); WHITE BLOOD COUNT 4.1 K/UL (4.8-10.8)
[2019-04-23 15:54] LABS: ANION GAP 12 mmol/L (5-15); BLOOD UREA NITROGEN 11 mg/dL (7-18); CALCIUM 9.5 MG/DL (8.5-10.1); CARBON DIOXIDE 25 MMOL/L (21-32); CHLORIDE 107 MMOL/L (98-107); POTASSIUM 4.2 MMOL/L (3.5-5.1); SODIUM 144 MMOL/L (136-145)
[2019-04-23 15:55] LABS: INR 1.1 (0.9-1.1)
--- NOTE | 2019-04-23 16:05 | NUR ---
ED Nurse Note: pt walked in c/o rt lower abd pain and b-lat flank. also n/v. ermd eval done pt medicated placed on monitor .
[2019-04-23 16:06] LABS: ALANINE AMINOTRANSFERASE 49 U/L (12-78); ALBUMIN 3.3 G/DL (3.4-5.0); ALBUMIN/GLOBULIN RATIO 0.8 (1.0-2.7); ALKALINE PHOSPHATASE 108 U/L (46-116); ASPARTATE AMINO TRANSFERASE 108 U/L (15-37); BILIRUBIN,TOTAL 3.1 MG/DL (0.2-1.0)
[2019-04-23 16:07] LABS: BILIRUBIN,DIRECT 0.8 MG/DL (0.0-0.3)
--- NOTE | 2019-04-23 17:00 | Diagnostic Imaging Report ---
Indication: Abdominal pain Technique: Continuous helical transaxial imaging of the abdomen and pelvis was obtained from the lung bases to the pubic symphysis during intravenous contrast administration. Coronal 2-D reformats were also obtained. Study obtained in a Siemens sensation [address] Automatic Exposure Control was utilized. Total Dose length Product (DLP): 965.[address] Dose Index Volume (CTDIvol): 16.8 mGy Comparison: 01/03/2019 Findings: The lung bases are clear. There are multiple gallstones in the gallbladder. There is some nodularity of the liver which is abnormal in centrally. The spleen is prominent. There is suggestion of portosystemic varices in the upper abdomen. There are dilated fluid-filled loops of small bowel in a generalized fashion. Consider enteritis or ileus. Diverticula noted within the colon. No free fluid identified. Urinary bladder is unremarkable. There is narrowing of intervertebral discs and accompanying endplate osteophyte formation. Hypertrophied facet joints also demonstrated.. Compression fracture deformity of the L1 vertebra noted. There is a mild retrolisthesis at L1-2. Mild loss of height of the T10 and T11 vertebra also noted probably old. Aorta is mildly calcified. IMPRESSION: Suspected enteritis with the distended fluid-filled loops of small bowel. Cholelithiasis. Abnormal appearance of the liver. Query chronic disease/cirrhosis and portal hypertension. 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 Old compression fracture deformities of the vertebral bodies as described above Other incidental findings as described above. The CT scanner at [facility] is accredited by the [employer] and the scans are performed using dose optimization techniques as appropriate to a performed exam including Automatic Exposure control.
[2019-04-23 17:59] VITALS: BP 132/79
--- NOTE | 2019-04-23 17:59 | NUR ---
ED Nurse Note: lactic reflex drawn and sent.
[2019-04-23 18:00] LABS: APPEARANCE,URINE CLEAR; BILIRUBIN, URINE NEGATIVE (NEGATIVE); COLOR,URINE AMBER; GLUCOSE, URINE (UA) NEGATIVE (NEGATIVE); KETONES,URINE 1+ (NEGATIVE); LEUKOCYTE ESTERASE ,URINE 1+ (NEGATIVE); NITRITE,URINE NEGATIVE (NEGATIVE); PH,URINE 5 (4.5-8.0); PROTEIN,URINE 2+ (NEGATIVE); UROBILINOGEN,URINE 1 MG/DL (0.0-1.0)
--- NOTE | 2019-04-23 18:48 | NUR ---
ED Nurse Note: possible tx
--- NOTE | 2019-04-23 19:27 | NUR ---
HAND-OFF: Report given to Ivett FIGUEROA.
--- NOTE | 2019-04-23 19:30 | NUR ---
ED Nurse Note: Patient resting comfortably with no s/s of acute distress. Will continue to monitor.
--- NOTE | 2019-04-23 21:00 | NUR ---
ED Nurse Note: Patient reports pain level of 8/10, ERMD informed.
--- NOTE | 2019-04-23 21:45 | NUR ---
ED Nurse Note: Patient resting comfortably, no s/s of acute distress and no complaints at this time.
--- NOTE | 2019-04-23 23:39 | NUR ---
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
--- NOTE | 2019-04-23 23:39 | NUR ---
ED Nurse Note: Report called in to Estelle Aguilar RN.
[2019-04-23 23:40] VITALS: BP 132/79
== END 2019-04-23 23:46 | disposition short-term general hospital (02) ==
LOC: EMR 16:30
DX: K85.90 Acute pancreatitis without necrosis or infection, unspecified (principal); K52.9 Noninfective gastroenteritis and colitis, unspecified; K74.60 Unspecified cirrhosis of liver
CPT/HCPCS: 36415; 74177; 80053; 81003; 82248; 83605; 83690; 85007; 85025; 85610; 85730; 86850; 86900; 86901; 87086; 96361; 96374; 96375; 96376; 99284; J2270; J2405; Q9967; J7030

== ENCOUNTER 2020-04-19 09:55 | Emergency (ER) | payer BC, MEDICARE, OTHER ==
[~2020-04-19] VITALS: Ht 175.3 cm; Wt 72.6 kg
[~2020-04-19 09:55] MED LIST changes: +CEFEPIME-D2 GM/50 ML IVPB; +HEPARIN SO5000 UNIT2 SUBQ; +OMEPRAZOLE40 M1 ORAL; +PROTONIX IV40 MG IV; +VANCOMYCIN750 MG/150 IV
--- NOTE | 2020-04-19 10:01 | NUR ---
ED Nurse Note: ambulated into Ed due to constipation with abd pain. Took stool softners this morning but was not able to have bowel movement. breathing normal/even/unlabored. skin warm/dry. NAD noted.
[2020-04-19 10:04] VITALS: BP 133/78
[2020-04-19] MEDS ORDERED: Omnipaque-300 100ml vial INJ PRN (10:45)
--- NOTE | 2020-04-19 10:49 | Emergency Room Report ---
History of Present Illness General Chief Complaint: Constipation Source: Patient, Medical Record Present Illness HPI 69-year-old male with history of "bowel blockages" never requiring surgery here with constipation and abdominal distention. Patient says that he last had a bowel movement yesterday and says "it was very small." Has not had a bowel movement today. Says he believes that he is passing gas. He did take magnesium citrate without any relief. Is nauseous and actively vomiting here in the emergency department. No history of abdominal surgeries. Patient does have a history of DVT in his right lower extremity and currently on Lovenox. Denies fevers, chills, chest pain, palpitations, shortness of breath, back pain, IV drug use, recent trauma. 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 Nursing Documentation-PMH Hx Cardiac Problems: No - hepatitis C Hx Cancer: No Hx Gastrointestinal Problems: Yes - bowel obstruction, liver cirhosis Hx Neurological Problems: No Review of Systems All Other Systems: negative except mentioned in HPI Physical Exam Vital Signs Date Time Temp Pulse Resp B/P (MAP) Pulse Ox O2 Delivery O2 Flow Rate FiO2 04/19/20 09:58 98.2 60 17 133/78 (96) 98 Room Air Sp02 EP Interpretation: reviewed, normal General Appearance: no apparent distress, alert, non-toxic Head: normocephalic, atraumatic Eyes: bilateral eye normal inspection, bilateral eye PERRL ENT: hearing grossly normal, normal pharynx, no angioedema, normal voice Neck: full range of motion, supple/symm/no masses Respiratory: chest non-tender, lungs clear, normal breath sounds, speaking full sentences Cardiovascular #1: regular rate, rhythm, no edema Cardiovascular #2: 2+ carotid (R), 2+ carotid (L), 2+ radial (R), 2+ radial (L), 2+ dorsalis pedis (R), 2+ dorsalis pedis (L) Gastrointestinal: normal bowel sounds, no guarding, no rebound, other - Notable diffuse abdominal distention without any rebound or guarding Rectal: deferred Genitourinary: normal inspection, no CVA tenderness Musculoskeletal: back normal, normal range of motion, calf tenderness, gait/station normal, non-tender Neurologic: alert, motor strength/tone normal, oriented x3, sensory intact, responsive, speech normal Psychiatric: judgement/insight normal, memory normal, mood/affect normal, no suicidal/homicidal ideation Lymphatic: no adenopathy Medical Decision Making Diagnostic Impression: Primary Impression: SBO (small bowel obstruction) Additional Impressions: Abdominal pain Constipation ER Course Laboratory Tests Test 04/19/20 10:48 White Blood Count 2.6 K/UL (4.8-10.8) L Red Blood Count 4.07 M/UL (4.70-6.10) L Hemoglobin 12.5 G/DL (14.2-18.0) L Hematocrit 38.5 % (42.0-52.0) L Mean Corpuscular Volume 95 FL (80-99) Mean Corpuscular Hemoglobin 30.6 PG (27.0-31.0) Mean Corpuscular Hemoglobin Concent 32.4 G/DL (32.0-36.0) Red Cell Distribution Width 15.2 % (11.6-14.8) H Platelet Count 68 K/UL (150-450) L Mean Platelet Volume 9.2 FL (6.5-10.1) Neutrophils (%) (Auto) % (45.0-75.0) Lymphocytes (%) (Auto) % (20.0-45.0) Monocytes (%) (Auto) % (1.0-10.0) Eosinophils (%) (Auto) % (0.0-3.0) Basophils (%) (Auto) % (0.0-2.0) Differential Total Cells Counted 100 Neutrophils % (Manual) 71 % (45-75) Lymphocytes % (Manual) 16 % (20-45) L Monocytes % (Manual) 11 % (1-10) H Eosinophils % (Manual) 2 % (0-3) Basophils % (Manual) 0 % (0-2) Band Neutrophils 0 % (0-8) Platelet Estimate Decreased L Platelet Morphology Normal Anisocytosis 1+ Sodium Level 139 MMOL/L (136-145) Potassium Level 3.8 MMOL/L (3.5-5.1) Chloride Level 105 MMOL/L (98-107) Carbon Dioxide Level 28 MMOL/L (21-32) Anion Gap 7 mmol/L (5-15) Blood Urea Nitrogen 12 mg/dL (7-18) Creatinine 1.1 MG/DL (0.55-1.30) Estimated Glomerular Filtration Rate > 60 mL/min (>60) Glucose Level 133 MG/DL (74-106) H Calcium Level 9.3 MG/DL (8.5-10.1) Total Bilirubin 1.7 MG/DL (0.2-1.0) H Direct Bilirubin 0.5 MG/DL (0.0-0.3) H Aspartate Amino Transferase (AST) 44 U/L (15-37) H Alanine Aminotransferase (ALT) 31 U/L (12-78) Alkaline Phosphatase 133 U/L (46-116) H Total Protein 7.7 G/DL (6.4-8.2) Albumin 2.9 G/DL (3.4-5.0) L Globulin 4.8 g/dL Albumin/Globulin Ratio 0.6 (1.0-2.7) L CT abdomen pelvis: Small bowel obstruction Six 9-year-old male with history of appendectomy and umbilical hernia repair here with constipation. Patient says that he has not had a bowel movement since yesterday and that his bowel movement then was very small. He was hemodynamically stable and neurovascular intact in the emergency department. He required multiple doses of IV made pain medication and IV antiemetics in the ER. He was given 1 L of IV normal saline as well. CBC and CMP were largely unremarkable. However the CT abdomen pelvis did reveal a small bowel obstruction. Patient will be admitted to [facility]. Currently awaiting approval from insurance company. Signed out to oncoming physician. Last Vital Signs Date Time Temp Pulse Resp B/P (MAP) Pulse Ox O2 Delivery O2 Flow Rate FiO2 04/19/20 10:04 98.2 17 133/78 98 Room Air 04/19/20 09:58 60 Ilir Maher M.D. Apr 19, 2020 10:49
[2020-04-19 11:02] LABS: HEMATOCRIT 38.5 % (42.0-52.0); HEMOGLOBIN 12.5 G/DL (14.2-18.0); MEAN CORPUSCULAR VOLUME 95 FL (80-99); PLATELET COUNT 68 K/UL (150-450); RED BLOOD COUNT 4.07 M/UL (4.70-6.10); RED CELL DISTRIBUTION WIDTH 15.2 % (11.6-14.8); WHITE BLOOD COUNT 2.6 K/UL (4.8-10.8)
[2020-04-19 11:05] LABS: ANION GAP 7 mmol/L (5-15); BLOOD UREA NITROGEN 12 mg/dL (7-18); CALCIUM 9.3 MG/DL (8.5-10.1); CARBON DIOXIDE 28 MMOL/L (21-32); CHLORIDE 105 MMOL/L (98-107); CREATININE 1.1 MG/DL (0.55-1.30); POTASSIUM 3.8 MMOL/L (3.5-5.1); SODIUM 139 MMOL/L (136-145)
[2020-04-19 11:15] LABS: ALANINE AMINOTRANSFERASE 31 U/L (12-78); ALBUMIN 2.9 G/DL (3.4-5.0); ALBUMIN/GLOBULIN RATIO 0.6 (1.0-2.7); ALKALINE PHOSPHATASE 133 U/L (46-116); ASPARTATE AMINO TRANSFERASE 44 U/L (15-37); BILIRUBIN,TOTAL 1.7 MG/DL (0.2-1.0)
[2020-04-19 11:16] LABS: BILIRUBIN,DIRECT 0.5 MG/DL (0.0-0.3)
--- NOTE | 2020-04-19 11:42 | NUR ---
ED Nurse Note: Pt returned from CT, not in any distress.
--- NOTE | 2020-04-19 12:30 | NUR ---
ED Nurse Note: PT. HAD AN EPISODE OF VOMITING WITH BILE EMESIS. ERMD MADE AWARE
[2020-04-19] MEDS ORDERED: Morphine Sulfate 4mg/ml Inj (IV USE ONLY) IVP ONE (13:00)
--- NOTE | 2020-04-19 13:12 | Diagnostic Imaging Report ---
Clinical Indication: Abdominal distention, pain, constipation Technique: No oral contrast utilized, per emergency room physician request IV administration nonionic contrast. Venous phase spiral acquisition obtained through the abdomen and pelvis. Multiplanar reconstructions were generated. Total dose length product 329 mGycm. CTDIvol(s) 6 mGy. Dose reduction achieved using automated exposure control Comparison: 04/23/2019 Findings: Lack of enteric contrast limits assessment of the GI tract. Proximal small bowel loops are dilated and fluid-filled. There is some mucosal enhancement distal small bowel loops are nondilated. Uncertain as to the location of the transition point, although possibly in the central mesenteric root. Compared to the prior exam, the small bowel distention is much less generalized. There is evidence of prior appendectomy. There is colonic diverticulosis. No evidence of diverticulitis. There is questionably mild wall thickening of the sigmoid colon and rectum, and not clearly evident previously although possibly artifact of lack of distention. No free or loculated intraperitoneal gas or fluid is evident. The distal esophagus, stomach, duodenum are unremarkable. As previously, there is abnormal hepatic morphology, suggestive of cirrhotic change. There are large perigastric varices noted. There are also spontaneous splenorenal shunt type varices demonstrated. The portal vein is diffusely small in caliber. There is some heterogeneous attenuation without discrete mass involving segment 4A which appears unchanged in the previous exam. There is a calcification in this area, so this could represent an area of scarring. Another calcification is seen inferiorly in the right lobe. Again demonstrated are gallstones. No biliary ductal dilatation. The pancreas is unremarkable. The spleen is enlarged, measuring the adrenals are not well-visualized but grossly unremarkable. The kidneys are unremarkable. No retroperitoneal or mesenteric mass or adenopathy. No pelvic mass or adenopathy. The included lung bases demonstrate some posterior dependent atelectatic changes, are otherwise clear. The inferior vena cava is dilated. The heart size is normal, however. The bones demonstrate degenerative spondylosis changes and mild scoliotic deformity. There is a wedge/vertebra plana type compression fracture deformity of the L1 vertebral body which is also evident previously. Less severe compression fracture deformities of the T10 and T11 vertebral bodies are also noted. Impression: Dilated proximal small bowel, normal caliber distal small bowel, concerning for small bowel obstruction. However, given the degree of mucosal enhancement as well as finding on previous exam, this could also represent somewhat unusual appearance of enteritis. Equivocal wall thickening of the sigmoid colon and rectum, if real could indicate colitis/proctitis Evidence of hepatic cirrhosis. Evidence of portal hypertension, with varices and splenomegaly Vague area of heterogeneous attenuation in segment 4A of the liver. This may represent an area of scarring, given similarity to the previous study. Cholelithiasis Diverticulosis Dilated inferior vena cava-suspect central venous hypertension Other findings as noted, including posterior dependent pulmonary atelectatic changes, degenerative spondylosis, old vertebral body compression fractures, hepatic parenchymal calcifications Critical value findings discussed by phone with Dr. Maher at the time of interpretation The CT scanner at [facility] is accredited by the [employer] and the scans are performed using protocols designed to limit radiation exposure to as low as reasonably achievable to attain images of sufficient resolution adequate for diagnostic evaluation.
[2020-04-19 13:13] VITALS: BP 153/81
--- NOTE | 2020-04-19 13:30 | NUR ---
ED Nurse Note: Pt vomitted x1. Notified ERMD
[2020-04-19] MEDS ORDERED: OMEPRAZOLE20 M2 ORAL (14:14)
[2020-04-19] MEDS ORDERED: FAMOTIDINE20 MG ORAL (14:14)
[2020-04-19] MEDS ORDERED: ENOXAPARIN100 MG/1 M SUBQ (14:14)
[2020-04-19 15:39] VITALS: BP 153/81
--- NOTE | 2020-04-19 15:45 | NUR ---
ED Nurse Note: REPORT GIVEN TO LISA
[2020-04-19 15:53] VITALS: BP 133/88
--- NOTE | 2020-04-19 15:55 | NUR ---
ER DISCHARGE NOTE: Patient is transferred to [facility]. report given to Danuta. pt. is aware of the transfer and left with all his belongings and with vital signs stable
== END 2020-04-19 15:57 | disposition short-term general hospital (02) ==
LOC: EMR 11:43
DX: K56.609 Unspecified intestinal obstruction, unspecified as to partial versus complete obstruction (principal); K59.00 Constipation, unspecified; R10.9 Unspecified abdominal pain; Z86.718 Personal history of other venous thrombosis and embolism; Z88.8 Allergy status to other drugs, medicaments and biological substances; Z79.01 Long term (current) use of anticoagulants; Z86.19 Personal history of other infectious and parasitic diseases; K74.60 Unspecified cirrhosis of liver; Z90.89 Acquired absence of other organs
CPT/HCPCS: 36415; 74177; 80053; 82248; 85007; 85025; 96361; 96374; 96375; 99284; J2270; J2405; J7030; Q9965